=== PATIENT | male | born 1945 | race Caucasian/White ===

== ENCOUNTER → 2016-12-27 | Outpatient (CLI) | payer MEDICARE ==
--- NOTE | 2016-12-27 10:14 | US ---
EXAMINATION TYPE: US duplex aorta DATE OF EXAM: 12/27/2016 9:35 AM COMPARISON: US in PACS CLINICAL HISTORY: I71.9 Aortic aneurysm of unspec site w/o rupture. History of AAA, pt has no complai nts at this time EXAM MEASUREMENTS: Abdominal Aorta: Proximal: 2.9 x 2.9 cm Mid: 2.2 x 2.3 cm Distal: 3.6 x 3.9 cm Bifurcation: SPENSER: 1.3 x 1.3 cm MOOK: 1.5 x 1.2 cm Wall calcifications, Ectatic aorta with distal AAA= 3.6 x 3.9 cm which has increased in size since previous IMPRESSION: 3.9 CM, INFRARENAL ABDOMINAL AORTIC ANEURYSM.
[2016-12-27 10:37] LABS: Basophils # (A) 0.1 k/uL (0-0.2); Basophils % (A) 1 %; CH 30.2; CHCM 34.2; Eosinophils # (A) 0.3 k/uL (0-0.7); Eosinophils % (A) 3 %; HCT 49.3 % (39.0-53.0); HDW 2.75; HGB 16.7 gm/dL (13.0-17.5); Luc # (Auto) 0.19; Luc % (Auto) 2; Lymphocytes # (A) 1.5 k/uL (1.0-4.8); Lymphocytes % (A) 20 %; MCHC 33.8 g/dL (31.0-37.0); MCV 88.7 fL (80.0-100.0); Mean Platelet Volume 8.9; Monocytes # (A) 0.6 k/uL (0-1.0); Monocytes % (A) 8 %; Neutrophils # (A) 5.2 k/uL (1.3-7.7); Neutrophils % (A) 66 %; RBC 5.56 m/uL (4.30-5.90); RDW 13.8 % (11.5-15.5); WBC 7.9 k/uL (3.8-10.6); WBC (Perox) 7.99
[2016-12-27 10:56] LABS: ALT 43 U/L (21-72); AST 35 U/L (17-59); Alkaline Phosphatase 52 U/L (38-126); Anion Gap 13 mmol/L; Blood Urea Nitrogen 23 mg/dL (9-20); Calcium 9.2 mg/dL (8.4-10.2); Carbon Dioxide 20 mmol/L (22-30); Chloride 110 mmol/L (98-107); Cholesterol 153 mg/dL (<200); Glucose 97 mg/dL (74-99); HDL Cholesterol 33 mg/dL (40-60); Non-African American GFR(MDRD) >60 (>60 ml/min/1.73 sqM); Potassium 4.5 mmol/L (3.5-5.1); Sodium 143 mmol/L (137-145); Total Bilirubin 1.7 mg/dL (0.2-1.3); Total Protein 7.2 g/dL (6.3-8.2); Triglycerides 125 mg/dL (<150)
[2016-12-27 11:41] LABS: Hepatitis C Virus IgG Index 0.03
[2016-12-27 11:50] LABS: Hepatitis C Virus IgG Ab Negative (Negative)
== END | disposition home or self-care (01) ==
LOC: RADUSWWP 09:22
PROVIDERS: ATTEND Internal Medicine
DX: I71.4 Abdominal aortic aneurysm, without rupture (principal); E55.9 Vitamin D deficiency, unspecified; I10 Essential (primary) hypertension; Z13.9 Encounter for screening, unspecified
CPT/HCPCS: 80053; 80061; 82306; 85025; 86803; 93979

== ENCOUNTER → 2017-09-28 | Outpatient (CLI) | payer MEDICARE ==
--- NOTE | 2017-09-28 09:45 | US ---
EXAMINATION TYPE: US duplex aorta DATE OF EXAM: 09/28/2017 COMPARISON: US CLINICAL HISTORY: I71.4 Abdominal aortic aneurysm w/o ruputure. EXAM MEASUREMENTS: Abdominal Aorta: Proximal: 2.4 x 2.4 cm Mid: 2.4 x 2.5 cm Distal: 3.8 x 4.0 cm Bifurcation: right 1.7 x 1.6 cm 1.6 x 1.7 cm distal AAA, previously measuring 3.6 x 3.9 cm on the exam of 12/27/2016. IMPRESSION: Interval enlargement of the distal abdominal aortic aneurysm measuring up to 3.8 x 4.0 cm , previously measuring 3.6 x 3.9 cm on the exam of 12/27/2016.
== END | disposition home or self-care (01) ==
LOC: RADUSWWP 08:53
PROVIDERS: ATTEND Internal Medicine
DX: I71.4 Abdominal aortic aneurysm, without rupture (principal)
CPT/HCPCS: 93979

== ENCOUNTER → 2018-05-03 | Outpatient (CLI) | payer MEDICARE ==
[2018-05-03 09:46] LABS: Basophils % (A) 1 %; Eosinophils # (A) 0.3 k/uL (0-0.7); Eosinophils % (A) 4 %; HCT 46.5 % (39.0-53.0); HGB 15.7 gm/dL (13.0-17.5); Lymphocytes # (A) 1.6 k/uL (1.0-4.8); Lymphocytes % (A) 21 %; MCH 30.1 pg (25.0-35.0); MCHC 33.7 g/dL (31.0-37.0); MCV 89.2 fL (80.0-100.0); Mean Platelet Volume 7.9; Monocytes # (A) 0.7 k/uL (0-1.0); Monocytes % (A) 8 %; Neutrophils % (A) 64 %; Platelet Count 215 k/uL (150-450); RBC 5.21 m/uL (4.30-5.90); RDW 14.1 % (11.5-15.5); WBC 7.8 k/uL (3.8-10.6)
[2018-05-03 09:49] LABS: Appearance,Urine Clear (Clear); Bilirubin,Urine Negative (Negative); Blood,Urine Negative (Negative); Color,Urine Yellow; Glucose,Urine (UA) Negative (Negative); Ketones,Urine Negative (Negative); Leukocyte Esterase,Urine Negative (Negative); Nitrite,Urine Negative (Negative); PH, Urine 5.5 (5.0-8.0); Protein,Urine Negative (Negative); Specific Gravity,Urine 1.016 (1.001-1.035); Urobilinogen,Urine <2.0 mg/dL (<2.0)
[2018-05-03 10:12] LABS: Albumin 4.1 g/dL (3.5-5.0); Potassium 4.6 mmol/L (3.5-5.1); Total Bilirubin 0.7 mg/dL (0.2-1.3); Total Protein 7.2 g/dL (6.3-8.2)
[2018-05-03 16:16] LABS: Vitamin D 25 Hydroxy 51.2 ng/mL (30.0-100.0)
== END | disposition home or self-care (01) ==
LOC: LABWHC1 09:20
PROVIDERS: ATTEND Internal Medicine
DX: I10 Essential (primary) hypertension (principal); E53.8 Deficiency of other specified B group vitamins; E55.9 Vitamin D deficiency, unspecified
CPT/HCPCS: 36415; 80053; 80061; 81003; 82306; 82607; 85025

== ENCOUNTER → 2018-06-19 | Outpatient (CLI) | payer MEDICARE ==
--- NOTE | 2018-06-19 07:34 | US ---
EXAMINATION TYPE: US duplex aorta DATE OF EXAM: 06/19/2018 COMPARISON: 09/28/2017 CLINICAL HISTORY: 72-year-old male I71.4 Abdominal Aortic Aneurysm w/o rupture. AAA follow up TECHNIQUE: Multiple sonographic images of the abdominal aorta are obtained. FINDINGS: EXAM MEASUREMENTS: Abdominal Aorta: Proximal: 2.3 x 2.4 cm Mid: 3.4 x 2.9 cm (previously 2.4 x 2.5 cm) Distal: 4.0 x 4.1 cm (previously 3.8 x 4.0 cm) Bifurcation: SPENSER: 1.3 x 1.5 cm MOOK: 1.7 x 1.6 cm Fountain Manager notes:Known distal AAA, slightly larger when compared to previous, mid portion also >3c m IMPRESSION: 1. Infrarenal AAA measuring 4.1 x 4.0 cm versus 3.8 x 4.0 cm, previously. 2. The mid abdominal aorta is also measuring aneurysmal now at 3.4 x 2.9 cm (previously measured at 2 .4 x 2.5 cm). This in part is felt to relate to differences in measurement technique. Follow-up can b e performed. 3. Ectatic bilateral common iliac arteries measuring up to 1.7 cm on the left.
== END | disposition home or self-care (01) ==
LOC: RADUSWWP 06:48
PROVIDERS: ATTEND Internal Medicine
DX: I71.4 Abdominal aortic aneurysm, without rupture (principal); I77.89 Other specified disorders of arteries and arterioles
CPT/HCPCS: 93979

== ENCOUNTER → 2018-07-11 | Outpatient (CLI) | payer MEDICARE ==
--- NOTE | 2018-07-11 13:42 | US ---
EXAMINATION TYPE: US venous doppler duplex LE RT DATE OF EXAM: 07/11/2018 1:11 PM COMPARISON: NONE CLINICAL HISTORY: M79.669 Pain in Calf. Swelling x 2 weeks. Pt felt "tendon tear". SIDE PERFORMED: Right TECHNIQUE: The lower extremity deep venous system is examined utilizing real time linear array sonog alycia with graded compression, doppler sonography and color-flow sonography. VESSELS IMAGED: External Iliac Vein (EIV) Common Femoral Vein Deep Femoral Vein Greater Saphenous Vein * Femoral Vein Popliteal Vein Small Saphenous Vein * Proximal Calf Veins (* superficial vessels) Right Leg: Negative for DVT Fluid collections noted on right lower extremity containing septations and debris: Popliteal Space = 6.3 x 3.4 x 1.9 cm Lower right calf = 11.4 x 5.5 x 2.5 cm Grayscale, color doppler, spectral doppler imaging performed of the deep veins of the right lower ext remity. There is normal flow, compressibility, vascular waveforms. IMPRESSION: No ultrasound evidence for acute DVT in the right lower extremity. There is moderate siz e slightly debris-filled popliteal cyst noted towards end of study. There is larger nonsimple fluid c ollection in the right calf suspicious for hematoma given patient history. Correlate for "Tennis leg" . Follow-up MRI may be beneficial.
== END ==
LOC: RADUSWWP 12:40
PROVIDERS: ATTEND Internal Medicine
DX: M71.20 Synovial cyst of popliteal space [Baker], unspecified knee (principal)

== ENCOUNTER 2018-11-22 09:27 | Emergency (ER) | payer MEDICARE ==
[2018-11-22 09:44] VITALS: RESP 18
--- NOTE | 2018-11-22 09:55 | ED ---
Upper Extremity HPI - General Chief Complaint: Extremity Injury, Upper Stated Complaint: RT INDEX FINGER INJURY Time Seen by Provider: 11/22/18 09:42 Source: patient, RN notes reviewed, old records reviewed Mode of arrival: ambulatory Limitations: no limitations - History of Present Illness Initial Comments: Patient is a 73-year-old male presents emergency room today with complaints of right index finger injury. Patient reports he slipped and fell on the ice. He cut himself with his right hand. He reports that he injured his right index finger. He reports he is unable to bend it. Patient states that he has a small laceration over the palmar aspect of the fingers well. Patient denies any fevers chills chest pain shortness breath, nausea vomiting or headaches. - Related Data Home Medications Medication Instructions Recorded Confirmed Atorvastatin [Lipitor] 10 mg PO HS 11/22/18 11/22/18 Carvedilol [Coreg] 12.5 mg PO BID 11/22/18 11/22/18 Cholecalciferol [Vitamin D3] 2,000 mg PO DAILY 11/22/18 11/22/18 Losartan Potassium [Cozaar] 100 mg PO DAILY 11/22/18 11/22/18 Sertraline [Zoloft] 50 mg PO DAILY 11/22/18 11/22/18 Tamsulosin HCl [Flomax] 0.4 mg PO HS 11/22/18 11/22/18 amLODIPine [Norvasc] 5 mg PO DAILY 11/22/18 11/22/18 Allergies Allergy/AdvReac Type Severity Reaction Status Date / Time hydromorphone [From Dilaudid] Allergy Rash/Hives Verified 11/22/18 09:52 Sulfa (Sulfonamide Allergy Unknown Verified 11/22/18 09:52 Antibiotics) Childhood Tetanus Vaccines and Toxoid Allergy Unknown Verified 11/22/18 09:52 Childhood morphine AdvReac Nausea & Verified 11/22/18 09:52 Vomiting Review of Systems ROS Statement: Those systems with pertinent positive or pertinent negative responses have been documented in the HPI. ROS Other: All systems not noted in ROS Statement are negative. Past Medical History Past Medical History: CVA/TIA, Hypertension History of Any Multi-Drug Resistant Organisms: None Reported Past Psychological History: No Psychological Hx Reported Smoking Status: Never smoker Past Alcohol Use History: None Reported Past Drug Use History: None Reported General Exam - General Exam Comments Initial Comments: 33-year-old male. Alert and oriented. No distress. Limitations: no limitations General appearance: alert, in no apparent distress Head exam: Present: atraumatic, normocephalic, normal inspection Eye exam: Present: normal appearance, PERRL, EOMI. Absent: scleral icterus, conjunctival injection, periorbital swelling ENT exam: Present: normal exam, mucous membranes moist Neck exam: Present: normal inspection. Absent: tenderness, meningismus, lymphadenopathy Respiratory exam: Present: normal lung sounds bilaterally. Absent: respiratory distress, wheezes, rales, rhonchi, stridor Cardiovascular Exam: Present: regular rate, normal rhythm, normal heart sounds. Absent: systolic murmur, diastolic murmur, rubs, gallop, clicks GI/Abdominal exam: Present: soft, normal bowel sounds. Absent: distended, tenderness, guarding, rebound, rigid Extremities exam: Present: normal inspection, full ROM, normal capillary refill , other (dislocated PIP of R index finger). Absent: tenderness, pedal edema, joint swelling, calf tenderness Back exam: Present: normal inspection Neurological exam: Present: alert, oriented X3, CN II-XII intact Course Vital Signs 11/22/18 11/22/18 09:41 11:10 Temperature 98.3 F 97.0 F L Pulse Rate 70 56 L Respiratory 18 18 Rate Blood Pressure 175/86 129/83 O2 Sat by Pulse 97 97 Oximetry Procedures - Orthopedic Joint Reduction Joint #1 Side: right Joint Reduction Location: finger (index) Analgesia: none Technique Used: direct manipulation Post-Reduction Neuro Exam: intact Post-Reduction Vascular Exam: intact, no change Post Reduction X-Ray Obtained: No Splint Applied: Yes (finger splint. ) Patient Tolerated Procedure: well, no complications Additional Comments: Patient has full ROM of finger after reduction. Normal sensationa nd cap refill. Medical Decision Making - Medical Decision Making 74 year old male with fall and dislocation of R index PIP digit. Patient had small abrasion over DIP closed with dermabond. Patient tolerated reduction well , and after reevaluation he is NV inact. Patient has full ROM of finger. Discussed using finger splint nad PCP and ortho follow up. - Radiology Data Radiology results: report reviewed Dorsal dislocation middle distal phalanx of the second digit relative to proximal phalanx. Soft tissue edema noted. Tiny chip fracture is not excluded. 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 Lateral views are difficult to assess the capitate lunate alignment which may be slightly subluxed. This could be acute but suspect chronic basis of secondary to severe arthropathy. Correlate clinically. Disposition Clinical Impression: Finger abrasion, Finger dislocation Disposition: HOME SELF-CARE Condition: Good Instructions (If sedation given, give patient instructions): Finger Dislocation (ED) Additional Instructions: follow-up with your primary care physician. Patient should return to the emergency department if any alarming signs or symptoms occur. Rapid finger splint or ilda tape the 2 fingers together. Motrin Tylenol and icing for pain. Is patient prescribed a controlled substance at d/c from ED?: No Referrals: Real Calix MD [Primary Care Provider] - 1-2 days Time of Disposition: 10:57
--- NOTE | 2018-11-22 10:11 | XR ---
EXAMINATION TYPE: XR hand complete RT DATE OF EXAM: 11/22/2018 COMPARISON: NONE HISTORY: Pain TECHNIQUE: Three views are submitted. FINDINGS: There is arthropathy of the radiocarpal joint with deformity of the scaphoid which could been the bas is of chronic osteonecrosis. Arthropathy of the MCP joint of the first 2 digits are noted. There is a dislocation of the middle and distal phalanx of the second digit relative to the proximal phalanx. C annot exclude a small chip fracture off the volar plate. Lateral view is difficult to assess the capi julien lunate alignment. Corticated bony density along the dorsal surface of the radius appears chronic . IMPRESSION: 1. Dorsal dislocation middle and distal phalanx second digit relative the proximal phalanx. Soft tiss ue edema noted. Tiny Chip fracture not excluded. 2. 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 3. Lateral views difficult to assess the capitate lunate alignment which may be slightly subluxed. Th is could be acute but suspect is chronic basis secondary to severe arthropathy. Correlate clinically.
[2018-11-22] MEDS ORDERED: TOPICAL SKIN ADHESIVE 1 EACH AMP TOPICAL ONE (10:24)
[2018-11-22 11:18] VITALS: BP 129/83; PULSE 56; TEMP 97
--- NOTE | 2018-11-23 03:37 | CDI ---
Documentation Clarification OP Dear Cherie KELLOGG PA-C, PAC Please provide index finger abrasion repair length. Thank you, Sudhir Shoemaker Community Nutrition Educator If you have any questions, please contact Air Export Coordinator at [phone] [facility]
== END 2018-11-22 11:10 | disposition home or self-care (01) ==
LOC: EC 09:27
DX: S63.280A Dislocation of proximal interphalangeal joint of right index finger, initial encounter (principal); S60.410A Abrasion of right index finger, initial encounter; I10 Essential (primary) hypertension; Z79.899 Other long term (current) drug therapy; Z88.5 Allergy status to narcotic agent; Z88.2 Allergy status to sulfonamides; Z88.7 Allergy status to serum and vaccine; Z86.73 Personal history of transient ischemic attack (TIA), and cerebral infarction without residual deficits; W00.0XXA Fall on same level due to ice and snow, initial encounter; Y92.89 Other specified places as the place of occurrence of the external cause
CPT/HCPCS: 12001; 26770; 99284

== ENCOUNTER → 2019-01-02 | Outpatient (CLI) | payer MEDICARE ==
[2019-01-02 17:24] LABS: Albumin 4.2 g/dL (3.80-4.90); Anion Gap 8.6 mmol/L (4.00-12.00); Calcium 8.9 mg/dL (8.7-10.3); Carbon Dioxide 20.4 mmol/L (21.6-31.8); Phosphorus 3.3 mg/dL (2.4-5.1); Potassium 4.2 mmol/L (3.5-5.5)
== END | disposition home or self-care (01) ==
LOC: LABWHC1 10:06
PROVIDERS: ATTEND Surgery Vascular Surgery
DX: Z01.812 Encounter for preprocedural laboratory examination (principal)
CPT/HCPCS: 36415; 80069

== ENCOUNTER → 2019-02-27 | Outpatient (CLI) | payer MEDICARE ==
--- NOTE | 2019-02-27 13:45 | US ---
EXAMINATION TYPE: US venous doppler duplex LE LT DATE OF EXAM: 02/27/2019 1:33 PM COMPARISON: US 2013 CLINICAL HISTORY: pain in Left lower M79.605. 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 VESSELS IMAGED: External Iliac Vein (EIV) Common Femoral Vein Deep Femoral Vein Greater Saphenous Vein * Femoral Vein Popliteal Vein Small Saphenous Vein * Proximal Calf Veins (* superficial vessels) Grayscale, color doppler, spectral doppler imaging performed of the deep veins of the left lower extr emity. There is normal flow, compressibility, vascular waveforms. Left Leg: Appears negative for DVT IMPRESSION: No sonographic evidence of deep venous thrombosis within the left lower extremity.
== END | disposition home or self-care (01) ==
LOC: RADUSWWP 13:04
PROVIDERS: ATTEND Internal Medicine
DX: M79.605 Pain in left leg (principal)

== ENCOUNTER → 2019-03-13 | Outpatient (CLI) | payer MEDICARE | END | disposition home or self-care (01) | LOC: RADMRIMAIN 10:34 | PROVIDERS: ATTEND Internal Medicine | DX: Z53.9 Procedure and treatment not carried out, unspecified reason (principal) ==

== ENCOUNTER → 2019-07-02 | Outpatient (CLI) | payer MEDICARE ==
[2019-07-02 11:56] LABS: Basophils # (A) 0.1 k/uL (0-0.2); Basophils % (A) 1 %; Eosinophils # (A) 0.4 k/uL (0-0.7); Eosinophils % (A) 5 %; HCT 48.7 % (39.0-53.0); HGB 16.8 gm/dL (13.0-17.5); Lymphocytes # (A) 1.9 k/uL (1.0-4.8); Lymphocytes % (A) 21 %; MCH 29.6 pg (25.0-35.0); MCHC 34.4 g/dL (31.0-37.0); MCV 86.1 fL (80.0-100.0); Mean Platelet Volume 7.1; Monocytes # (A) 0.6 k/uL (0-1.0); Monocytes % (A) 6 %; Neutrophils # (A) 6.1 k/uL (1.3-7.7); Neutrophils % (A) 66 %; Platelet Count 235 k/uL (150-450); RBC 5.66 m/uL (4.30-5.90); RDW 13.7 % (11.5-15.5); WBC 9.3 k/uL (3.8-10.6)
[2019-07-02 12:19] LABS: Appearance,Urine Clear (Clear); Bilirubin,Urine Negative (Negative); Blood,Urine Negative (Negative); Color,Urine Yellow; Glucose,Urine (UA) Negative (Negative); Ketones,Urine Negative (Negative); Leukocyte Esterase,Urine Negative (Negative); Nitrite,Urine Negative (Negative); Protein,Urine Negative (Negative); Specific Gravity,Urine 1.017 (1.001-1.035); Urobilinogen,Urine <2.0 mg/dL (<2.0)
[2019-07-02 15:57] LABS: African American GFR (CKD) 77.3 (60.0-200.0); Albumin 4.3 g/dL (3.80-4.90); Albumin/Globulin Ratio 1.79 (1.60-3.17); BUN/Creat Ratio 19.09 Ratio (12.00-20.00); Calcium 9.1 mg/dL (8.7-10.3); Chol/HDL Ratio 4.93; Globulin 2.4 g/dL (1.6-3.3); LDL Cholesterol,Calculated 86.6 mg/dL (0.0-131.0); Phosphorus 3.8 mg/dL (2.4-5.1); Potassium 4.7 mmol/L (3.5-5.5); Total Bilirubin 1.4 mg/dL (0.3-1.2); Total Protein 6.7 g/dL (6.2-8.2); VLDL Calculation 23.4 mg/dL (5.00-40.00)
== END | disposition home or self-care (01) ==
LOC: LABWHC1 11:03
PROVIDERS: ATTEND Surgery Vascular Surgery
DX: I71.2 Thoracic aortic aneurysm, without rupture (principal); I10 Essential (primary) hypertension; I71.4 Abdominal aortic aneurysm, without rupture; E55.9 Vitamin D deficiency, unspecified
CPT/HCPCS: 36415; 80053; 80061; 80069; 81003; 82306; 85025

== ENCOUNTER 2019-07-14 12:01 | Emergency (ER) | payer MEDICARE ==
[2019-07-14 12:07] VITALS: RESP 18; TEMP 97.6
[2019-07-14] MEDS ORDERED: SODIUM CHLORIDE 0.9% 1,000 ML IV STA (12:35)
[2019-07-14 12:39] LABS: Glucose,Whole Blood 103 mg/dL (75-99)
--- NOTE | 2019-07-14 12:40 | ED ---
General Adult HPI - General Chief complaint: Syncope Stated complaint: Weakness Time Seen by Provider: 07/14/19 12:09 Source: patient, family, RN notes reviewed Mode of arrival: wheelchair Limitations: no limitations - History of Present Illness Initial comments: Patient is a pleasant 73-year-old male presenting to the emergency Department with complaints of near syncope episode. Episode occurred around an hour ago. Patient was sitting down and became very lightheaded. Patient had blurry vision. Patient felt decreased hearing and then ringing in his ears. Patient did not feel well. Symptoms lasted less than 5 minutes and now have resolved ex cept for feeling fatigued. No confusion. Patient did not fully pass out. No speech problems. No isolated area of weakness. Patient does have known aneurysm in the abdomen as well as thoracic and left inguinal region and sees his doctor on Tuesday for this. - Related Data Home Medications Medication Instructions Recorded Confirmed Atorvastatin [Lipitor] 10 mg PO HS 11/22/18 07/14/19 Carvedilol [Coreg] 12.5 mg PO BID 11/22/18 07/14/19 Losartan Potassium [Cozaar] 100 mg PO DAILY 11/22/18 07/14/19 Sertraline [Zoloft] 50 mg PO HS 11/22/18 07/14/19 Tamsulosin HCl [Flomax] 0.4 mg PO DAILY 11/22/18 07/14/19 amLODIPine [Norvasc] 5 mg PO DAILY 11/22/18 07/14/19 Allergies Allergy/AdvReac Type Severity Reaction Status Date / Time hydromorphone [From Dilaudid] Allergy Rash/Hives Verified 07/14/19 13:01 Sulfa (Sulfonamide Allergy Unknown Verified 07/14/19 13:01 Antibiotics) Childhood Tetanus Vaccines and Toxoid Allergy Unknown Verified 07/14/19 13:01 Childhood morphine AdvReac Nausea & Verified 07/14/19 13:01 Vomiting Review of Systems ROS Statement: Those systems with pertinent positive or pertinent negative responses have been documented in the HPI. ROS Other: All systems not noted in ROS Statement are negative. Constitutional: Denies: fever Eyes: Reports: as per HPI. Denies: eye pain ENT: Reports: as per HPI Respiratory: Denies: dyspnea Cardiovascular: Denies: chest pain Endocrine: Reports: fatigue Gastrointestinal: Denies: abdominal pain Genitourinary: Denies: dysuria Musculoskeletal: Denies: back pain Skin: Denies: rash Neurological: Denies: headache, weakness, confusion Past Medical History Past Medical History: CVA/TIA, Hypertension History of Any Multi-Drug Resistant Organisms: None Reported Past Surgical History: Cholecystectomy, Orthopedic Surgery Additional Past Surgical History / Comment(s): B Knee, L eye, B cataract, 5 ludivina holes, vasectomy Past Psychological History: No Psychological Hx Reported Smoking Status: Never smoker Past Alcohol Use History: Occasional Past Drug Use History: None Reported General Exam Limitations: no limitations General appearance: alert, in no apparent distress Head exam: Present: normocephalic Eye exam: Present: normal appearance, PERRL, EOMI. Absent: nystagmus ENT exam: Present: normal oropharynx Neck exam: Present: normal inspection Respiratory exam: Present: normal lung sounds bilaterally Cardiovascular Exam: Present: bradycardia Expanded Peripheral pulses: 2+: Radial (R), Radial (L), Posterior Tibialis (R), Posterior Tibialis (L), Dorsalis Pedis (R), Dorsalis Pedis (L) GI/Abdominal exam: Present: soft. Absent: distended, tenderness, pulsatile mass Extremities exam: Present: normal inspection Neurological exam: Present: alert, oriented X3, CN II-XII intact. Absent: motor sensory deficit Expanded Neurological exam: Present: protecting the airway Patient oriented to: Present: person, place, time Speech: Present: fluid speech Cranial nerves: EOM's Intact: Normal, Facial Sensation: Normal Sensory exam: Upper Extremity Light Touch: Normal, Lower Extremity Light Touch: Normal Motor strength exam: RUE: 5, LUE: 5, RLE: 5, LLE: 5 Eye Response: (4) open spontaneously Motor Response: (6) obeys commands Verbal Response: (5) oriented Psychiatric exam: Present: normal affect, normal mood Skin exam: Present: normal color Course Vital Signs 07/14/19 12:03 Temperature 97.6 F Pulse Rate 50 L Respiratory 18 Rate Blood Pressure 182/95 O2 Sat by Pulse 96 Oximetry EKG Findings - EKG Comments: EKG Findings:: Sinus bradycardia at 51. First-degree AV block with a ND of 210. QRS 100. QT 500. QTc 460. Normal axis. Normal QRS. No acute ST change. Medical Decision Making - Medical Decision Making Patient reevaluated and resting comfortably in bed. Heart rate 60. Patient family updated on results. Patient recommended admission for further evaluation and monitoring however refuses. Patient states he feels fine at this point and does not see a reason to be admitted. Patient states he does have follow-up appointment with his basilar doctor on Tuesday and is agreeable to close follow- up with his primary care physician in the beginning of the week as well. Patient is advised to hold his metoprolol if heart rate is 63 or lower in the morning. - Lab Data Result diagrams: 07/14/19 12:35 07/14/19 12:35 Lab Results 07/14/19 07/14/19 07/14/19 Range/Units 12:35 12:35 12:35 WBC 8.2 (3.8-10.6) k/uL RBC 5.28 (4.30-5.90) m/uL Hgb 16.1 (13.0-17.5) gm/dL Hct 46.7 (39.0-53.0) % MCV 88.4 (80.0-100.0) fL MCH 30.4 (25.0-35.0) pg MCHC 34.4 (31.0-37.0) g/dL RDW 13.9 (11.5-15.5) % Plt Count 195 (150-450) k/uL Neutrophils % 69 % Lymphocytes % 18 % Monocytes % 6 % Eosinophils % 4 % Basophils % 1 % Neutrophils # 5.7 (1.3-7.7) k/uL Lymphocytes # 1.5 (1.0-4.8) k/uL Monocytes # 0.5 (0-1.0) k/uL Eosinophils # 0.3 (0-0.7) k/uL Basophils # 0.1 (0-0.2) k/uL PT 10.7 (9.0-12.0) sec INR 1.0 (<1.2) APTT 29.5 (22.0-30.0) sec Sodium 141 (137-145) mmol/L Potassium 4.8 (3.5-5.1) mmol/L Chloride 109 H (98-107) mmol/L Carbon Dioxide 22 (22-30) mmol/L Anion Gap 10 mmol/L BUN 23 H (9-20) mg/dL Creatinine 1.06 (0.66-1.25) mg/dL Est GFR (CKD-EPI)AfAm 81 (>60 ml/min/1.73 sqM) Est GFR (CKD-EPI)NonAf 70 (>60 ml/min/1.73 sqM) Glucose 107 H (74-99) mg/dL POC Glucose (mg/dL) (75-99) mg/dL POC Glu Topography Technician ID Calcium 9.4 (8.4-10.2) mg/dL Total Bilirubin 1.0 (0.2-1.3) mg/dL AST 30 (17-59) U/L ALT 32 (21-72) U/L Alkaline Phosphatase 65 (38-126) U/L Troponin I (0.000-0.034) ng/mL Total Protein 7.4 (6.3-8.2) g/dL Albumin 4.1 (3.5-5.0) g/dL 07/14/19 07/14/19 Range/Units 12:35 12:38 WBC (3.8-10.6) k/uL RBC (4.30-5.90) m/uL Hgb (13.0-17.5) gm/dL Hct (39.0-53.0) % MCV (80.0-100.0) fL MCH (25.0-35.0) pg MCHC (31.0-37.0) g/dL RDW (11.5-15.5) % Plt Count (150-450) k/uL Neutrophils % % Lymphocytes % % Monocytes % % Eosinophils % % Basophils % % Neutrophils # (1.3-7.7) k/uL Lymphocytes # (1.0-4.8) k/uL Monocytes # (0-1.0) k/uL Eosinophils # (0-0.7) k/uL Basophils # (0-0.2) k/uL PT (9.0-12.0) sec INR (<1.2) APTT (22.0-30.0) sec Sodium (137-145) mmol/L Potassium (3.5-5.1) mmol/L Chloride (98-107) mmol/L Carbon Dioxide (22-30) mmol/L Anion Gap mmol/L BUN (9-20) mg/dL Creatinine (0.66-1.25) mg/dL Est GFR (CKD-EPI)AfAm (>60 ml/min/1.73 sqM) Est GFR (CKD-EPI)NonAf (>60 ml/min/1.73 sqM) Glucose (74-99) mg/dL POC Glucose (mg/dL) 103 H (75-99) mg/dL POC Glu Topography Technician Willow Cardoso Calcium (8.4-10.2) mg/dL Total Bilirubin (0.2-1.3) mg/dL AST (17-59) U/L ALT (21-72) U/L Alkaline Phosphatase (38-126) U/L Troponin I <0.012 (0.000-0.034) ng/mL Total Protein (6.3-8.2) g/dL Albumin (3.5-5.0) g/dL - Radiology Data Radiology results: report reviewed (Computed tomography scan of the brain shows no acute intercranial abnormality. Degenerative and postsurgical changes. Dystrophic calcification in the rosales.), image reviewed (CT angios of the aorta shows 4.1 cm aneurysm aortic arch and borderline distal arch. 4.7 cm infrarenal abdominal aortic aneurysm. There also appears to be left iliac aneurysm.) Disposition Clinical Impression: Near syncope, Lightheadedness Disposition: HOME SELF-CARE Condition: Stable Instructions (If sedation given, give patient instructions): Thoracic Aortic Aneurysm (ED), Near Syncope (ED), Lightheadedness (ED) Additional Instructions: Please follow-up with your vascular doctor on Tuesday as scheduled. Please also follow-up to primary care physician Tuesday or Tuesday. Checked heart rate daily. Do not take metoprolol if your heart rate is less than 64. Return for weakness or confusion, feeling like to get a pass out, visual changes, worsening symptoms or any other concerns. Is patient prescribed a controlled substance at d/c from ED?: No Referrals: Real Calix MD [Primary Care Provider] - 1-2 days Time of Disposition: 14:32
[2019-07-14 12:57] LABS: Basophils # (A) 0.1 k/uL (0-0.2); Basophils % (A) 1 %; Eosinophils # (A) 0.3 k/uL (0-0.7); Eosinophils % (A) 4 %; HCT 46.7 % (39.0-53.0); HGB 16.1 gm/dL (13.0-17.5); Lymphocytes # (A) 1.5 k/uL (1.0-4.8); Lymphocytes % (A) 18 %; MCH 30.4 pg (25.0-35.0); MCHC 34.4 g/dL (31.0-37.0); MCV 88.4 fL (80.0-100.0); Mean Platelet Volume 7.2; Monocytes # (A) 0.5 k/uL (0-1.0); Monocytes % (A) 6 %; Neutrophils # (A) 5.7 k/uL (1.3-7.7); Neutrophils % (A) 69 %; Platelet Count 195 k/uL (150-450); RBC 5.28 m/uL (4.30-5.90); RDW 13.9 % (11.5-15.5); WBC 8.2 k/uL (3.8-10.6)
[2019-07-14 12:58] LABS: Albumin 4.1 g/dL (3.5-5.0); Calcium 9.4 mg/dL (8.4-10.2); Potassium 4.8 mmol/L (3.5-5.1); Total Protein 7.4 g/dL (6.3-8.2)
[2019-07-14 13:02] LABS: Partial Thromboplastin Time 29.5 sec (22.0-30.0); Prothrombin Time 10.7 sec (9.0-12.0)
--- NOTE | 2019-07-14 13:50 | CT ---
EXAMINATION TYPE: CT brain wo con DATE OF EXAM: 07/14/2019 COMPARISON: NONE HISTORY: Weakness and syncope CT DLP: 1138 mGycm Automated exposure control for dose reduction was used. FINDINGS: There are generalized changes of sulcal prominence and ventriculomegaly, compatible with atrophic naren nge. There is diffuse periventricular white matter lucency, compatible with chronic white matter isch emic change. There is physiologic calcification of the basal ganglia. There is extensive vascular dean cification. There is dystrophic calcification present within the jackie. There is no mass effect or mid line shift. There is been a previous right frontal craniotomy and left frontal craniotomy. Visualized portions of the paranasal sinuses are intact. IMPRESSION: 1. NO ACUTE INTRACRANIAL ABNORMALITY. 2. DEGENERATIVE CHANGE. 3. POSTSURGICAL CHANGE. 4. DYSTROPHIC OUT "WITHIN THE JACKIE OF QUESTIONABLE ETIOLOGY.
--- NOTE | 2019-07-14 14:03 | CT ---
EXAMINATION TYPE: CT angio thor/abd pel aorta DATE OF EXAM: 07/14/2019 COMPARISON: None. HISTORY: Dizziness and weakness with known aneurysms CT DLP: 3980.4 mGycm. Automated Exposure Control for Dose Reduction was Utilized. CONTRAST: CT scan of the thorax, abdomen and pelvis is performed with IV Contrast, patient injected with 100 mL of Isovue 370. FINDINGS: There is dependent atelectasis in the dependent portions of the lungs. The lungs are otherw ise clear. There is no significant axillary, mediastinal or hilar adenopathy. No pleural or pericardial fluid. T he heart is enlarged. The aorta is aneurysmal measuring 4.7 cm. The proximal arch is aneurysmal measuring 4.1 cm. The dista l arch is mildly aneurysmal measuring 3.1 cm. At the level of the aortic hiatus, the aorta is mildly aneurysmal measuring 3.1 cm. There is an infrarenal aortic aneurysm containing eccentric thrombus wit h maximal transverse diameter 4.7 cm. This extends to but does not involve the aortic bifurcation. The liver is mildly prominent measuring 19 cm. There is a 2.1 cm low attenuating lesion in the medial segment of the left lobe of the liver. This likely represents a cyst. This could BE confirmed with u ltrasound. The gallbladder is been removed. The spleen is normal. Both adrenal glands are normal. There are multiple low attenuating lesions arising from both kidneys which have the appearance of sim ple cyst. The largest on the left measures 4.3 cm and is in the upper pole and the largest on the rig ht measures 4.6 cm and is in the lower pole. The pancreas has a normal appearance., Iliac or inguinal adenopathy. Bladder is unremarkable. There are scattered diverticula within the sigmoid colon and elsewhere throughout the left side of th e colon without radiographic evidence of diverticulitis. The appendix is normal. Small bowel loops are of normal caliber. There is no free fluid and no free air identified. There are degenerative changes in both hips. There is minor wedging of the L5 vertebral body. There i s facet arthropathy and hypertrophic spondylosis within the spine. IMPRESSION: 1. THORACIC AND AORTIC ANEURYSM WITH MAXIMAL TRANSVERSE DIAMETER OF 4.7 CM. 2. CARDIOMEGALY. 3. HEPATOMEGALY. 4. SIMPLE APPEARING HEPATIC AND RENAL CYSTS. THIS COULD BE CONFIRMED WITH ULTRASOUND. 5. UNCOMPLICATED DIVERTICULOSIS OF THE LEFT SIDE OF THE COLON. 6. NORMAL APPENDIX. #7 DEGENERATIVE CHANGE OF BOTH HIPS AND SPINE.
[2019-07-14] MEDS ORDERED: amLODIPine 5 MG TAB PO STA (14:29)
[2019-07-14 14:55] VITALS: BP 167/101; PULSE 59
== END 2019-07-14 14:52 | disposition home or self-care (01) ==
LOC: EC 12:01
DX: R55 Syncope and collapse (principal); R00.1 Bradycardia, unspecified; R53.83 Other fatigue; I71.2 Thoracic aortic aneurysm, without rupture; I71.4 Abdominal aortic aneurysm, without rupture; I72.4 Aneurysm of artery of lower extremity; I10 Essential (primary) hypertension; Z88.2 Allergy status to sulfonamides; Z88.5 Allergy status to narcotic agent; Z88.7 Allergy status to serum and vaccine; Z79.899 Other long term (current) drug therapy; Z86.73 Personal history of transient ischemic attack (TIA), and cerebral infarction without residual deficits; Z90.49 Acquired absence of other specified parts of digestive tract; Z53.20 Procedure and treatment not carried out because of patient's decision for unspecified reasons
CPT/HCPCS: 99284; 96360; 96361; 36415; 93005; 80053; 84484; 85025; 85610; 85730; 70450; 71275; 74174; Q9967

== ENCOUNTER → 2019-09-13 | Outpatient (CLI) | payer MEDICARE ==
[2019-09-14] LABS: African American GFR (CKD) 76.8 (60.0-200.0); Anion Gap 10.5 mmol/L (4.00-12.00); BUN/Creat Ratio 18.18 Ratio (12.00-20.00); Calcium 8.8 mg/dL (8.7-10.3); Carbon Dioxide 23.5 mmol/L (21.6-31.8); Non-African American GFR(CKD) 66.2 (60.0-200.0); Potassium 4.4 mmol/L (3.5-5.5)
== END | disposition home or self-care (01) ==
LOC: LABWHC1 14:57
PROVIDERS: ATTEND Specialist
DX: I10 Essential (primary) hypertension (principal)
CPT/HCPCS: 36415; 80048

== ENCOUNTER 2019-09-22 11:35 | Inpatient (IN) | payer MEDICARE ==
[2019-09-22] MEDS ORDERED: SODIUM CHLORIDE 0.9% 1,000 ML IV STA (12:15)
--- NOTE | 2019-09-22 12:22 | ED ---
General Adult HPI - General Chief complaint: Recheck/Abnormal Lab/Rx Stated complaint: EKG Time Seen by Provider: 09/22/19 11:48 Source: patient, RN notes reviewed Mode of arrival: wheelchair Limitations: physical limitation - History of Present Illness Initial comments: Patient is a pleasant 74-year-old male presenting to the emergency department with concerns for needing an EKG. Patient states they talked to their doctor Gantt who recommended to have an EKG done at the hospital. Further history obtained reveals that patient felt lightheaded after getting of the shower and felt sweaty. Patient states symptoms are near resolved however when he last got up he did feel a little bit lightheaded still at that time. Patient is symptom- free in bed. Patient did have a stroke approximately 2 months ago. Patient was going for testing of his aorta when he developed a stroke at [facility] in July. Patient has continued deficits of right-sided facial weakness and balance problems. No extremity weakness. Blood pressure at home was 99/80 and heart rate was 1:30. Patient denies any chest pain or palpitations. Patient denies any dyspnea. No new weakness. No confusion. - Related Data Home Medications Medication Instructions Recorded Confirmed Sertraline [Zoloft] 50 mg PO DAILY 11/22/18 09/22/19 Tamsulosin HCl [Flomax] 0.4 mg PO DAILY 11/22/18 09/22/19 Aspirin 81 mg PO DAILY 09/22/19 09/22/19 Atorvastatin [Lipitor] 80 mg PO HS 09/22/19 09/22/19 Carvedilol [Coreg] 3.125 mg PO BID 09/22/19 09/22/19 Clopidogrel [Plavix] 75 mg PO DAILY 09/22/19 09/22/19 Famotidine [Pepcid] 20 mg PO DAILY 09/22/19 09/22/19 Hydrochlorothiazide [Hydrodiuril] 25 mg PO DAILY 09/22/19 09/22/19 Losartan [Cozaar] 50 mg PO DAILY 09/22/19 09/22/19 Allergies Allergy/AdvReac Type Severity Reaction Status Date / Time hydromorphone [From Dilaudid] Allergy Rash/Hives Verified 09/22/19 12:44 Sulfa (Sulfonamide Allergy Unknown Verified 09/22/19 12:44 Antibiotics) Childhood Tetanus Vaccines and Toxoid Allergy Unknown Verified 09/22/19 12:44 Childhood morphine AdvReac Nausea & Verified 09/22/19 12:44 Vomiting Review of Systems ROS Statement: Those systems with pertinent positive or pertinent negative responses have been documented in the HPI. ROS Other: All systems not noted in ROS Statement are negative. Constitutional: Denies: fever Eyes: Denies: eye pain ENT: Denies: ear pain Respiratory: Denies: cough Cardiovascular: Denies: chest pain, palpitations Endocrine: Denies: fatigue Gastrointestinal: Denies: abdominal pain, nausea Genitourinary: Denies: dysuria Musculoskeletal: Denies: back pain Skin: Denies: rash Neurological: Reports: as per HPI. Denies: headache, confusion Past Medical History Past Medical History: CVA/TIA, Hypertension History of Any Multi-Drug Resistant Organisms: None Reported Past Surgical History: Cholecystectomy, Orthopedic Surgery Additional Past Surgical History / Comment(s): B Knee, L eye, B cataract, 5 ludivina holes, vasectomy Past Psychological History: No Psychological Hx Reported Smoking Status: Never smoker Past Alcohol Use History: Occasional Past Drug Use History: None Reported General Exam Limitations: physical limitation General appearance: alert, in no apparent distress Head exam: Present: atraumatic, normocephalic Eye exam: Present: normal appearance, PERRL, EOMI ENT exam: Present: normal oropharynx, other (Right-sided facial weakness) Neck exam: Present: normal inspection Respiratory exam: Present: normal lung sounds bilaterally Cardiovascular Exam: Present: normal rhythm, tachycardia GI/Abdominal exam: Present: soft. Absent: tenderness Extremities exam: Present: normal inspection Neurological exam: Present: alert, oriented X3, other (Right-sided facial weakness) Expanded Neurological exam: Present: protecting the airway Patient oriented to: Present: person, place, time Motor strength exam: RUE: 5, LUE: 5, RLE: 5, LLE: 5 Eye Response: (4) open spontaneously Motor Response: (6) obeys commands Verbal Response: (5) oriented Psychiatric exam: Present: normal affect, normal mood Skin exam: Present: normal color Course Vital Signs 09/22/19 09/22/19 11:43 13:47 Temperature 97.3 F L Pulse Rate 130 H 117 H Respiratory 20 17 Rate Blood Pressure 106/71 114/81 O2 Sat by Pulse 93 L Oximetry - Reevaluation(s) Reevaluation #1: 09/22/19 12:20 [facility] cardiology has been paged. 09/22/19 12:[address] Fields from [facility] cardiology. He is suspicious for atrial flutter with a 2-1 block and does feel patient would value from cardiac evaluation, possible admission. He is agreeable with heparin. He states patient can stay in our facility however if they've requested transfer cardiology could evaluate him there as well. 09/22/19 14:00 Patient reevaluated and resting comfortably in bed, symptom-free at this time. Patient and family updated on results and need for admission or transfer. They're discussing this at this time prior to being agreeable for either. 09/22/19 14:21 Patient reevaluated again. Patient and family are comfortable with staying here. Case was discussed in detail with Dr. Barron who will admit covering for Dr. Chino. 09/22/19 14:23 Patient and family state patient did have recent evaluation of his aneurysms, within the past 2 months, which all remaining small and there is no needed intervention at this time. Patient does have small aneurysms of the thorax and abdomen and left iliac. EKG Findings - EKG Comments: EKG Findings:: Neuro complex tachycardia with a rate of 125. QRS 80. QT 350. QTC 505. Normal axis. Normal QRS. No acute ST change. Difficult to visualize P waves. Medical Decision Making - Lab Data Result diagrams: 09/22/19 12:30 09/22/19 12:30 Lab Results 09/22/19 09/22/19 09/22/19 Range/Units 12:30 12:30 12:30 WBC 11.7 H (3.8-10.6) k/uL RBC 5.12 (4.30-5.90) m/uL Hgb 15.0 (13.0-17.5) gm/dL Hct 44.5 (39.0-53.0) % MCV 87.0 (80.0-100.0) fL MCH 29.4 (25.0-35.0) pg MCHC 33.8 (31.0-37.0) g/dL RDW 14.1 (11.5-15.5) % Plt Count 326 (150-450) k/uL Neutrophils % 69 % Lymphocytes % 15 % Monocytes % 7 % Eosinophils % 6 % Basophils % 1 % Neutrophils # 8.1 H (1.3-7.7) k/uL Lymphocytes # 1.8 (1.0-4.8) k/uL Monocytes # 0.8 (0-1.0) k/uL Eosinophils # 0.7 (0-0.7) k/uL Basophils # 0.2 (0-0.2) k/uL PT 11.2 (9.0-12.0) sec INR 1.1 (<1.2) APTT 28.9 (22.0-30.0) sec Sodium 136 L (137-145) mmol/L Potassium 4.7 (3.5-5.1) mmol/L Chloride 105 (98-107) mmol/L Carbon Dioxide 20 L (22-30) mmol/L Anion Gap 11 mmol/L BUN 23 H (9-20) mg/dL Creatinine 1.09 (0.66-1.25) mg/dL Est GFR (CKD-EPI)AfAm 78 (>60 ml/min/1.73 sqM) Est GFR (CKD-EPI)NonAf 67 (>60 ml/min/1.73 sqM) Glucose 113 H (74-99) mg/dL Calcium 9.4 (8.4-10.2) mg/dL Magnesium 1.9 (1.6-2.3) mg/dL Total Bilirubin 1.2 (0.2-1.3) mg/dL AST 47 (17-59) U/L ALT 29 (4-49) U/L Alkaline Phosphatase 72 (38-126) U/L Troponin I (0.000-0.034) ng/mL Total Protein 7.0 (6.3-8.2) g/dL Albumin 3.7 (3.5-5.0) g/dL TSH 1.650 (0.465-4.680) mIU/L Free T4 1.01 (0.78-2.19) ng/dL Free T3 pg/mL 4.0 (2.8-5.3) pg/ml Urine Color Urine Appearance (Clear) Urine pH (5.0-8.0) Ur Specific [place] (1.001-1.035) Urine Protein (Negative) Urine Glucose (UA) (Negative) Urine Ketones (Negative) Urine Blood (Negative) Urine Nitrite (Negative) Urine Bilirubin (Negative) Urine Urobilinogen (<2.0) mg/dL Ur Leukocyte Esterase (Negative) Urine RBC (0-5) /hpf Urine WBC (0-5) /hpf Urine WBC Clumps (None) /hpf Ur Squamous Epith Cells (0-4) /hpf Urine Bacteria (None) /hpf Hyaline Casts (0-2) /lpf Urine Mucus (None) /hpf 09/22/19 09/22/19 Range/Units 12:30 12:42 WBC (3.8-10.6) k/uL RBC (4.30-5.90) m/uL Hgb (13.0-17.5) gm/dL Hct (39.0-53.0) % MCV (80.0-100.0) fL MCH (25.0-35.0) pg MCHC (31.0-37.0) g/dL RDW (11.5-15.5) % Plt Count (150-450) k/uL Neutrophils % % Lymphocytes % % Monocytes % % Eosinophils % % Basophils % % Neutrophils # (1.3-7.7) k/uL Lymphocytes # (1.0-4.8) k/uL Monocytes # (0-1.0) k/uL Eosinophils # (0-0.7) k/uL Basophils # (0-0.2) k/uL PT (9.0-12.0) sec INR (<1.2) APTT (22.0-30.0) sec Sodium (137-145) mmol/L Potassium (3.5-5.1) mmol/L Chloride (98-107) mmol/L Carbon Dioxide (22-30) mmol/L Anion Gap mmol/L BUN (9-20) mg/dL Creatinine (0.66-1.25) mg/dL Est GFR (CKD-EPI)AfAm (>60 ml/min/1.73 sqM) Est GFR (CKD-EPI)NonAf (>60 ml/min/1.73 sqM) Glucose (74-99) mg/dL Calcium (8.4-10.2) mg/dL Magnesium (1.6-2.3) mg/dL Total Bilirubin (0.2-1.3) mg/dL AST (17-59) U/L ALT (4-49) U/L Alkaline Phosphatase (38-126) U/L Troponin I 0.110 H* (0.000-0.034) ng/mL Total Protein (6.3-8.2) g/dL Albumin (3.5-5.0) g/dL TSH (0.465-4.680) mIU/L Free T4 (0.78-2.19) ng/dL Free T3 pg/mL (2.8-5.3) pg/ml Urine Color Yellow Urine Appearance Cloudy (Clear) Urine pH 5.0 (5.0-8.0) Ur Specific [place] 1.016 (1.001-1.035) Urine Protein Trace H (Negative) Urine Glucose (UA) Negative (Negative) Urine Ketones Negative (Negative) Urine Blood Trace H (Negative) Urine Nitrite Negative (Negative) Urine Bilirubin Negative (Negative) Urine Urobilinogen <2.0 (<2.0) mg/dL Ur Leukocyte Esterase Large H (Negative) Urine RBC 6 H (0-5) /hpf Urine WBC 119 H (0-5) /hpf Urine WBC Clumps Rare H (None) /hpf Ur Squamous Epith Cells <1 (0-4) /hpf Urine Bacteria Occasional H (None) /hpf Hyaline Casts 18 H (0-2) /lpf Urine Mucus Occasional H (None) /hpf Critical Care Time Critical Care Time: Yes Total Critical Care Time: 32 Disposition Clinical Impression: Atrial flutter, Elevated troponin Disposition: ADMITTED IP TO THIS HOSP Is patient prescribed a controlled substance at d/c from ED?: No Referrals: Real Calix MD [Primary Care Provider] - 1-2 days Decision Time: 14:23
[2019-09-22 12:41] LABS: Basophils # (A) 0.2 k/uL (0-0.2); Basophils % (A) 1 %; Eosinophils # (A) 0.7 k/uL (0-0.7); Eosinophils % (A) 6 %; HCT 44.5 % (39.0-53.0); Lymphocytes # (A) 1.8 k/uL (1.0-4.8); Lymphocytes % (A) 15 %; MCH 29.4 pg (25.0-35.0); MCHC 33.8 g/dL (31.0-37.0); Mean Platelet Volume 8.5; Monocytes # (A) 0.8 k/uL (0-1.0); Monocytes % (A) 7 %; Neutrophils # (A) 8.1 k/uL (1.3-7.7); Neutrophils % (A) 69 %; Platelet Count 326 k/uL (150-450); RBC 5.12 m/uL (4.30-5.90); RDW 14.1 % (11.5-15.5); WBC 11.7 k/uL (3.8-10.6)
--- NOTE | 2019-09-22 12:48 | XR ---
EXAMINATION TYPE: XR chest 2V DATE OF EXAM: 09/22/2019 HISTORY: dysrhythmia. REFERENCE: Previous study dated 04/20/2012. FINDINGS: The heart is enlarged. There is vascular congestion and subtle interstitial change. No defi nite pleural fluid is seen. There is developing confluent airspace disease at the lung bases. IMPRESSION: 1. CHANGES CONSISTENT WITH MILD HEART FAILURE. 2. CONFLUENT AIRSPACE DISEASE BOTH LUNG BASES MAY REPRESENT ATELECTASIS OR CONFLUENT EDEMA.
[2019-09-22 12:50] LABS: Albumin 3.7 g/dL (3.5-5.0); Calcium 9.4 mg/dL (8.4-10.2); Magnesium 1.9 mg/dL (1.6-2.3); Potassium 4.7 mmol/L (3.5-5.1); Total Bilirubin 1.2 mg/dL (0.2-1.3)
[2019-09-22 12:57] LABS: INR 1.1 (<1.2); Partial Thromboplastin Time 28.9 sec (22.0-30.0); Prothrombin Time 11.2 sec (9.0-12.0)
[2019-09-22 13:07] LABS: T4, Free (Free Thyroxine) 1.01 ng/dL (0.78-2.19)
[2019-09-22 13:10] LABS: Appearance,Urine Cloudy (Clear); Bacteria,Urine Occasional /hpf; Bilirubin,Urine Negative (Negative); Blood,Urine Trace (Negative); Color,Urine Yellow; Glucose,Urine (UA) Negative (Negative); Hyaline Casts,Urine 18 /lpf (0-2); Ketones,Urine Negative (Negative); Leukocyte Esterase,Urine Large (Negative); Mucus,Urine Occasional /hpf; Nitrite,Urine Negative (Negative); Protein,Urine Trace (Negative); RBC,Urine 6 /hpf (0-5); Specific Gravity,Urine 1.016 (1.001-1.035); Squamous Epithelial Cell,Urine <1 /hpf (0-4); Urobilinogen,Urine <2.0 mg/dL (<2.0); WBC,Urine 119 /hpf (0-5)
[2019-09-22] MEDS ORDERED: HEPARIN SODIUM,PORCINE 5,000 UNIT/ML 1 ML VIAL IV PRN (14:24)
[2019-09-22] MEDS ORDERED: NITROGLYCERIN SL TABS 0.4 MG TAB SUBLINGUAL PRN (14:24)
[2019-09-22] MEDS ORDERED: HEPARIN SODIUM,PORCINE 5,000 UNIT/ML 1 ML VIAL IV ONE (14:24)
[2019-09-22] MEDS ORDERED: ASPIRIN 81 MG PO STA (14:26)
[2019-09-22] MEDS: HEPARIN SOD,PORK IN 0.45% NACL 25,000 UNIT in 0.45% NACL 1 250ML.BAG IV SCH (15:22)
[2019-09-22] MEDS ORDERED: DILTIAZEM 125 MG in SODIUM CHLORIDE 0.9% 100 ML IV SCH (16:00)
--- NOTE | 2019-09-22 17:00 | ECHOF ---
Referral Reason:Arrhythmia and elevated troponin MEASUREMENTS -------- HEIGHT: 182.9 cm WEIGHT: 122.5 kg BP: RVIDd: 2.4 cm (< 3.3) IVSd: 1.3 cm (0.6 - 1.1) LVIDd: 4.6 cm (3.9 - 5.3) LVPWd: 1.3 cm (0.6 - 1.1) IVSs: 1.7 cm LVIDs: 4.2 cm LVPWs: 1.3 cm LA Diam: 3.5 cm (2.7 - 3.8) Ao Diam: 3.5 cm (2.0 - 3.7) AV Cusp: 1.6 cm (1.5 - 2.6) LA Diam: 4.1 cm (2.7 - 3.8) MV EXCURSION: 20.130 mm (> 18.000) MV EF SLOPE: 145 mm/s (70 - 150) EPSS: 0.2 cm MV E Titi: 0.90 m/s MV DecT: 234 ms MV A Titi: 0.59 m/s MV E/A Ratio: 1.53 RAP: 5.00 mmHg RVSP: 16.11 mmHg FINDINGS -------- Undetermined rhythm. Morbid Obesity The left ventricular size is normal. There is mild concentric left ventricular hypertrophy. Overa ll left ventricular systolic function is normal with, an EF between 55 - 60 %. The right ventricle is normal in size. The left atrial size is normal. The right atrial size is normal. There is mild aortic valve sclerosis. There is no evidence of aortic regurgitation. Mild mitral annular calcification present. Mild mitral regurgitation is present. Mild tricuspid regurgitation present. Right ventricular systolic pressure is normal at < 35 mmHg. There is no evidence of pulmonary hypertension. The pulmonic valve was not well visualized. Echo free space indicative of a pericardial fat pad. CONCLUSIONS -------- 1. Undetermined rhythm. 2. Morbid Obesity 3. The left ventricular size is normal. 4. There is mild concentric left ventricular hypertrophy. 5. Overall left ventricular systolic function is normal with, an EF between 55 - 60 %. 6. The right ventricle is normal in size. 7. The left atrial size is normal. 8. The right atrial size is normal. 9. There is mild aortic valve sclerosis. 10. Mild mitral annular calcification present. 11. Mild mitral regurgitation is present. 12. Mild tricuspid regurgitation present. 13. Right ventricular systolic pressure is normal at < 35 mmHg. 14. There is no evidence of pulmonary hypertension. 15. The pulmonic valve was not well visualized. 16. Echo free space indicative of a pericardial fat pad. LAB[employer]ER [employer]: Melisa Padgett RDCS
--- NOTE | 2019-09-22 17:22 | P.CRDCN ---
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 Recently patient was at [facility], having a computed tomography scan of chest and abdomen. 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 Patient spent several days in [facility]. Apparently he recovered most of his functions except the right facial droop and some incoordination and ataxia. Since coming home, patient blood pressure has been fluctuating. Patient also had given monitor. There was a consideration for RACHEL examination but was canceled because the neurologist didn't recommend it. He came to the hospital this time because of dizziness and sweating. The dizziness seemed to postural. He was also found to have fast heart rhythm. His EKG on arrival showed narrow complex tachycardia which is supraventricular. His troponin was mildly elevated. Patient did not experience any chest pain. He doesn't appear to be in acute distress and denied any shortness of breath. His being admitted to the hospital for treatment of supra ventricular arrhythmia. Rule out atrial flutter. Patient is being initiated on IV Cardizem and also by mouth metoprolol. He is also on IV heparin. Patient has been on aspirin and Plavix since his stroke Review of Systems As per the chart Past Medical History Past Medical History: CVA/TIA, Hypertension History of Any Multi-Drug Resistant Organisms: None Reported Past Surgical History: Cholecystectomy, Orthopedic Surgery Additional Past Surgical History / Comment(s): B Knee, L eye, B cataract, 5 ludivina holes, vasectomy Past Psychological History: No Psychological Hx Reported Smoking Status: Never smoker Past Alcohol Use History: Occasional Past Drug Use History: None Reported - Past Family History Father Additional Family Medical History / Comment(s): CA Mother Family Medical History: Respiratory Disorder Medications and Allergies Home Medications Medication Instructions Recorded Confirmed Type Sertraline [Zoloft] 50 mg PO DAILY 11/22/18 09/22/19 History Tamsulosin HCl [Flomax] 0.4 mg PO DAILY 11/22/18 09/22/19 History Aspirin 81 mg PO DAILY 09/22/19 09/22/19 History Atorvastatin [Lipitor] 80 mg PO HS 09/22/19 09/22/19 History Carvedilol [Coreg] 3.125 mg PO BID 09/22/19 09/22/19 History Clopidogrel [Plavix] 75 mg PO DAILY 09/22/19 09/22/19 History Famotidine [Pepcid] 20 mg PO DAILY 09/22/19 09/22/19 History Hydrochlorothiazide [Hydrodiuril] 25 mg PO DAILY 09/22/19 09/22/19 History Losartan [Cozaar] 50 mg PO DAILY 09/22/19 09/22/19 History Allergies Allergy/AdvReac Type Severity Reaction Status Date / Time hydromorphone [From Dilaudid] Allergy Rash/Hives Verified 09/22/19 12:44 Sulfa (Sulfonamide Allergy Unknown Verified 09/22/19 12:44 Antibiotics) Childhood Tetanus Vaccines and Toxoid Allergy Unknown Verified 09/22/19 12:44 Childhood morphine AdvReac Nausea & Verified 09/22/19 12:44 Vomiting Physical Exam Vitals: Vital Signs Temp Pulse Pulse Resp BP BP Pulse Ox 09/22/19 16:44 97.7 F 113 H 16 123/89 95 09/22/19 14:20 123 H 18 106/81 96 09/22/19 14:00 115 H 19 103/82 95 09/22/19 13:47 117 H 17 114/81 09/22/19 13:00 117/79 09/22/19 12:20 121 H 19 95 09/22/19 12:00 121 H 20 09/22/19 11:55 126 H 21 09/22/19 11:43 97.3 F L 130 H 20 106/71 93 L Intake and Output 09/22/19 09/22/19 09/22/19 06:59 14:59 22:59 Other: Weight 121.563 kg 120 kg GENERAL EXAM: Patient is alert and oriented and doesn't appear to be in any acute distress HEENT: Normocephalic. Normal reaction of pupils, equal size, normal range of extraocular motion. No erythema or exudates in the throat. NECK: No masses, no nuchal rigidity. CHEST: No chest wall deformity. LUNGS: Equal air entry with no crackles or wheeze. HEART: S1 and S2 normal with no audible mumurs or gallops. Regular rhythm, femorals equal on both sides.. ABDOMEN: No hepatosplenomegaly, normal bowel sounds, no guarding or rigidity. SKIN: No rashes CENTRAL NERVOUS SYSTEM: Right facial droop EXTREMITIES: No cyanosis, clubbing or edema. Results 09/22/19 12:30 09/22/19 12:30 Cardiac Enzymes 09/22/19 09/22/19 Range/Units 12:30 12:30 AST 47 (17-59) U/L Troponin I 0.110 H* (0.000-0.034) ng/mL Coagulation 09/22/19 Range/Units 12:30 PT 11.2 (9.0-12.0) sec APTT 28.9 (22.0-30.0) sec CBC 09/22/19 Range/Units 12:30 WBC 11.7 H (3.8-10.6) k/uL RBC 5.12 (4.30-5.90) m/uL Hgb 15.0 (13.0-17.5) gm/dL Hct 44.5 (39.0-53.0) % Plt Count 326 (150-450) k/uL Comprehensive Metabolic Panel 09/22/19 Range/Units 12:30 Sodium 136 L (137-145) mmol/L Potassium 4.7 (3.5-5.1) mmol/L Chloride 105 (98-107) mmol/L Carbon Dioxide 20 L (22-30) mmol/L BUN 23 H (9-20) mg/dL Creatinine 1.09 (0.66-1.25) mg/dL Glucose 113 H (74-99) mg/dL Calcium 9.4 (8.4-10.2) mg/dL AST 47 (17-59) U/L ALT 29 (4-49) U/L Alkaline Phosphatase 72 (38-126) U/L Total Protein 7.0 (6.3-8.2) g/dL Albumin 3.7 (3.5-5.0) g/dL Current Medications Generic Name Dose Route Start Last Admin Trade Name Freq PRN Reason Stop Dose Admin Aspirin 325 mg 09/23/19 09:00 Aspirin PO DAILY BILL Heparin Sodium (Porcine) 0 unit 09/22/19 14:24 09/22/19 15:22 Heparin IV 4,000 unit PER PROTOCOL PRN Administration Low PTT Protocol Sodium Chloride 1,000 mls @ 100 mls/hr 12/21/19 12:15 09/22/19 15:06 Saline 0.9% IV 09/22/19 22:14 100 mls/hr .Q10H STA Administration Heparin Sodium/Sodium Chloride 250 mls @ 9.725 mls/hr 09/22/19 14:30 09/22/19 15:22 25,000 unit/ Sodium Chloride IV 8 units/kg/hr .Q24H BILL 9.725 mls/hr Administration Protocol 8 UNITS/KG/HR Ceftriaxone Sodium 1 gm/ 50 mls @ 100 mls/hr 09/23/19 09:00 Sodium Chloride IVPB Q24HR BILL Diltiazem HCl 125 mg/ Sodium 125 mls @ 5 mls/hr 09/22/19 16:00 09/22/19 16:19 Chloride IV 5 mg/hr .Q24H BILL 5 mls/hr Administration 5 MG/HR Metoprolol Tartrate 25 mg 09/22/19 17:15 Lopressor PO TID BILL Nitroglycerin 0.4 mg 09/22/19 14:24 Nitrostat SUBLINGUAL Q5M PRN Chest Pain Intake and Output 09/22/19 09/22/19 09/22/19 06:59 14:59 22:59 Other: Weight 121.563 kg 120 kg Patient Weight 09/23/19 06:59 Weight 120 kg 09/22/19 12:30 09/22/19 12:30 EKG Interpretations (text) Supraventricular tachycardia versus atrial flutter Assessment and Plan (1) History of CVA (cerebrovascular accident) Current Visit: Yes Status: Acute Code(s): Z86.73 - PRSNL HX OF TIA (TIA), AND CEREB INFRC W/O RESID DEFICITS SNOMED Code(s): 449781542 (2) Atrial flutter Current Visit: Yes Status: Acute Code(s): I48.92 - UNSPECIFIED ATRIAL FLUTTER SNOMED Code(s): 6507565 (3) Elevated troponin Current Visit: Yes Status: Acute Code(s): R79.89 - OTHER SPECIFIED ABNORMAL FINDINGS OF BLOOD CHEMISTRY SNOMED Code(s): 181473842 (4) Labile hypertension Current Visit: Yes Status: Acute Code(s): R09.89 - OTH SYMPTOMS AND SIGNS INVOLVING THE CIRC AND RESP SYSTEMS SNOMED Code(s): 670432161 Plan: We will continue with IV Cardizem and beta ronnie. If necessary, may consider IV amiodarone. Continue with IV heparin. Echo is already done. Further recommendation will depend upon clinical course
[2019-09-22] MEDS: METOPROLOL TARTRATE 25 MG TAB PO SCH ×3 (17:33→22:24)
[2019-09-22] MEDS: ARTIFICIAL TEARS-HYPROMELLOSE DROPS 15 ML BTL BOTH EYES SCH ×2 (18:44→22:24)
[2019-09-22] MEDS: SODIUM CHLORIDE 0.9% 1,000 ML IV SCH (18:44)
[2019-09-22] MEDS: ATORVASTATIN 80 MG TAB PO SCH (22:24)
[2019-09-23] MEDS: METOPROLOL TARTRATE 25 MG TAB PO SCH ×4 (01:02→22:40)
[2019-09-23] MEDS: SODIUM CHLORIDE 0.9% 1,000 ML IV SCH ×2 (01:36→16:39)
[2019-09-23] MEDS ORDERED: ASPIRIN 325 MG TAB PO SCH (09:00)
[2019-09-23 09:29] LABS: Basophils # (A) 0.1 k/uL (0-0.2); Basophils % (A) 1 %; Eosinophils # (A) 0.8 k/uL (0-0.7); Eosinophils % (A) 9 %; HCT 41.8 % (39.0-53.0); HGB 13.8 gm/dL (13.0-17.5); Lymphocytes # (A) 1.6 k/uL (1.0-4.8); Lymphocytes % (A) 18 %; MCH 29.2 pg (25.0-35.0); MCV 88.6 fL (80.0-100.0); Mean Platelet Volume 8.3; Monocytes # (A) 0.5 k/uL (0-1.0); Monocytes % (A) 6 %; Neutrophils # (A) 5.5 k/uL (1.3-7.7); Neutrophils % (A) 64 %; Platelet Count 256 k/uL (150-450); RBC 4.72 m/uL (4.30-5.90); RDW 14.3 % (11.5-15.5); WBC 8.6 k/uL (3.8-10.6)
[2019-09-23] MEDS: LOSARTAN 50 MG TAB PO SCH (09:40)
[2019-09-23] MEDS: HYDROCHLOROTHIAZIDE 25 MG TAB PO SCH (09:40)
[2019-09-23] MEDS: TAMSULOSIN 0.4 MG CAP.ER.24H PO SCH (09:40)
[2019-09-23] MEDS: CLOPIDOGREL 75 MG TAB PO SCH (09:40)
[2019-09-23] MEDS: FAMOTIDINE 20 MG TAB PO SCH (09:40)
[2019-09-23] MEDS: SERTRALINE 50 MG TAB PO SCH (09:40)
[2019-09-23] MEDS: ARTIFICIAL TEARS-HYPROMELLOSE DROPS 15 ML BTL BOTH EYES SCH ×4 (09:41→22:43)
[2019-09-23] MEDS: ASPIRIN 81 MG PO SCH (09:41)
--- NOTE | 2019-09-23 10:07 | P.PN ---
Subjective This is a pleasant 74-year-old male past medical history significant for multiple CVAs, hypertension, dyslipidemia. He presented to the hospital with palpitations and then she needed an IV Cardizem and heparin. He is seen and examined sitting up eating breakfast in no acute distress. He denies any further symptoms of palpitations or shortness of breath. He has converted to sinus mechanism and Cardizem as been discontinued. Currently maintained on aspirin 81 mg daily, atorvastatin 80 mg daily, Plavix 75 mg daily, losartan 100 mg daily, hydrochlorothiazide 25 mg daily and metoprolol 25 mg 3 times a day. Blood pressure 135/76 heart rate 62 afebrile maintaining oxygen saturation on room air. Laboratory data reviewed, WBC 11.7, hemoglobin 15, platelets 326, sodium 136, potassium 4.7, creatinine 1.09, magnesium 1.9, troponin on admission 0.11, TSH 1.65. GENERAL: Well-appearing, well-nourished and in no acute distress. NECK: Supple without JVD or thyromegaly. LUNGS: Breath sounds clear to auscultation bilaterally. Respiration equal and unlabored. No wheezes, rales or rhonchi. HEART: Regular rate and rhythm without murmurs, rubs or gallops. S1 and S2 heard. EXTREMITIES: Normal range of motion, no edema. No clubbing or cyanosis. Peripheral pulses intact. ASSESSMENT Atrial flutter, typical. Converted to sinus mechanism Elevated troponin secondary to rapid heartbeat Hypertension History of CVA, right-sided facial droop PLAN IV Cardizem as been discontinued. He is maintaining sinus mechanism. Questionable hemorrhagic stroke in the past, long-term anticoagulation not initiated at this time. He is aware of this risk. We will request records from his neurologist for CVA history. Nurse Practitioner note has been reviewed, I agree with a documented findings and plan of care. Patient was seen and examined. Objective - Vital Signs Vital signs: Vital Signs Temp 97.2 F L 09/23/19 04:00 Pulse 62 09/23/19 04:00 Resp 18 09/23/19 04:00 BP 135/76 09/23/19 04:00 Pulse Ox 95 09/23/19 00:00 Intake & Output 09/22/19 09/23/19 09/23/19 18:59 06:59 18:59 Intake Total 490 329.033 120 Output Total 610 1 Balance 490 -280.967 119 Weight 120 kg 120.8 kg Intake: IV 10 30 Invasive Line 1 10 30 Intake, IV Titration 99.033 Amount Heparin Sod,Pork in 0.45% 99.033 NaCl 25,000 unit In 0.45 % NaCl 1 250ml.bag @ 8 UNITS/KG/HR 9.725 mls/hr IV .Q24H [facility] Rx#: [id number] Oral 480 200 120 Output: Urine 610 Urine/Stool Mix 1 Other: Voiding Method Indwelling Catheter Indwelling Catheter - Labs CBC & Chem 7: 09/23/19 08:50 09/22/19 12:30 Labs: Abnormal Lab Results - Last 24 Hours (Table) 09/22/19 09/22/19 09/22/19 Range/Units 12:30 12:30 12:30 WBC 11.7 H (3.8-10.6) k/uL Neutrophils # 8.1 H (1.3-7.7) k/uL APTT (22.0-30.0) sec Sodium 136 L (137-145) mmol/L Carbon Dioxide 20 L (22-30) mmol/L BUN 23 H (9-20) mg/dL Glucose 113 H (74-99) mg/dL Troponin I 0.110 H* (0.000-0.034) ng/mL Urine Protein (Negative) Urine Blood (Negative) Ur Leukocyte Esterase (Negative) Urine RBC (0-5) /hpf Urine WBC (0-5) /hpf Urine WBC Clumps (None) /hpf Urine Bacteria (None) /hpf Hyaline Casts (0-2) /lpf Urine Mucus (None) /hpf 09/22/19 09/23/19 09/23/19 Range/Units 12:42 00:59 05:47 WBC (3.8-10.6) k/uL Neutrophils # (1.3-7.7) k/uL APTT 42.5 H 50.3 H (22.0-30.0) sec Sodium (137-145) mmol/L Carbon Dioxide (22-30) mmol/L BUN (9-20) mg/dL Glucose (74-99) mg/dL Troponin I (0.000-0.034) ng/mL Urine Protein Trace H (Negative) Urine Blood Trace H (Negative) Ur Leukocyte Esterase Large H (Negative) Urine RBC 6 H (0-5) /hpf Urine WBC 119 H (0-5) /hpf Urine WBC Clumps Rare H (None) /hpf Urine Bacteria Occasional H (None) /hpf Hyaline Casts 18 H (0-2) /lpf Urine Mucus Occasional H (None) /hpf Microbiology - Last 24 Hours (Table) 09/22/19 12:42 Urine Culture - Preliminary Urine,Voided
[2019-09-23] MEDS ORDERED: amLODIPine 5 MG TAB PO SCH (16:15)
[2019-09-23] MEDS: HEPARIN SOD,PORK IN 0.45% NACL 25,000 UNIT in 0.45% NACL 1 250ML.BAG IV SCH (16:47)
--- NOTE | 2019-09-23 20:04 | P.HPIM ---
History of Present Illness H&P Date: 09/23/19 Chief Complaint: dizzy and sweating History of presenting complaint: This is a pleasant 74-year-old patient who follows with Dr. Real Chino. On July 16 patient had a stroke and was at [facility]. Resulting in right-sided weakness, dysarthria. informs me that the patient did receive the clot Boster for the same. Patient back in the had a knee replacement done by Dr. Garcia. Was given Coumadin for anticoagulation. Her GI bleed. Also had a blood clot at that time apparently. IVC filter was placed. Now, presents after taking a shower and feeling dizzy and perspiring. decided to bring him to the ER. Patient was found to be in atrial fibrillation with rapid ventricular rate. Patient's been IV heparin and also put on IV Cardizem. Car diology was consulted. Patient is able to talk do-dysarthric. Patient's at the bedside give most of the history.. There is no chest pain no palpitation. Patient's is rather skeptical about using anticoagulation due to the prior GI bleed. Now that was Coumadin. Now she does not want the consequences of atrial fibrillation with rather have blood thinners. Review of systems: GEN.: Tired EYES: None HEENT: None NECK: None RESPIRATORY: None CARDIOVASCULAR: None GASTROINTESTINAL: None GENITOURINARY: None MUSCULOSKELETAL: None LYMPHATICS: None HEMATOLOGICAL: None PSYCHIATRY: None NEUROLOGICAL: [Right-sided weakness with facial asymmetry and dysarthria Past medical history to include: -Stroke on 07/16/2019 resulting in dysarthria and right-sided weakness, IVC filter, peptic also disease, aneurysm, Agent Barton exposure Social history: Does not smoke. Alcohol occasionally. 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 . Physical examination: VITAL SIGNS: 97.1, 58, 18, 168/87, 95% room air GENERAL: BMI 36.1, laying in bed awake. EYES: Pupils equal. Conjunctiva normal. HEENT: External appearance of nose and ears normal, oral cavity grossly normal. NECK: JVD not raised; masses not palpable. HEART: Heart sounds irregular; no edema. LUNGS: Respiratory rate normal; clear to auscultation. ABDOMEN: Soft, nontender, liver spleen not palpable, no masses palpable. PSYCH: Alert and oriented x3; mood and affect normal. NEUROLOGICAL: Facial asymmetry present, multiple to the left right eye lower eyelid is everted, dysarthria, decreased power on the right side. LYMPHATICS: No lymph nodes palpable in the axilla and neck INVESTIGATIONS, reviewed in the clinical context: White count 8.6 hemoglobin 13.8 platelets 256 potassium 4.7 bun 23 creatinine 1.09 Troponin I 0.110, 0.240, TSH normal UA positive for leukoesterase, WBC Chest x-ray film personally reviewed by me-shows possible fluid prominence EKG tracing personally reviewed by me-possible atrial flutter with rapid ventricular rate versus SVT Assessment: -Possible atrial flutter with a rapid ventricular rate versus SVT -Dysarthria from recent stroke -Right hemiparesis from recent stroke, very unlikely to be hemorrhagic as the patient did receive a clot Boster according to the . -History of IVC filter -Essential hypertension -Troponin leak likely related to rapid ventricular rate. No clinical evidence of acute cardiac syndrome. Plan: Patient was initially put on IV heparin. Cardiology is following up on the same. It is unlikely the stroke was hemorrhagic given that the patient did rec eive a clot Boster as per the . Patient did get IV Cardizem and beta blockers. 2-D echocardiogram was done. Care was discussed with the patient and at the bedside. Questions were answered. Follow with [facility]. Past Medical History Past Medical History: CVA/TIA, Hypertension Additional Past Medical History / Comment(s): CVA July 16, 2019 right sided weakness and facial/eye droop. aneurysmes, thorax, abdomen, L. iliac. Agent orange exposure. IVC filter ; Bleeding ulcer ; History of Any Multi-Drug Resistant Organisms: None Reported Past Surgical History: Cholecystectomy, Orthopedic Surgery Additional Past Surgical History / Comment(s): B Knee, L eye, B cataract, 5 ludivina holes for hematoma, vasectomy Past Anesthesia/Blood Transfusion Reactions: No Reported Reaction Past Psychological History: No Psychological Hx Reported Smoking Status: Never smoker Past Alcohol Use History: Occasional Past Drug Use History: None Reported - Past Family History Father Additional Family Medical History / Comment(s): CA Mother Family Medical History: Respiratory Disorder Medications and Allergies Home Medications Medication Instructions Recorded Confirmed Type Sertraline [Zoloft] 50 mg PO DAILY 11/22/18 09/22/19 History Tamsulosin HCl [Flomax] 0.4 mg PO DAILY 11/22/18 09/22/19 History Aspirin 81 mg PO DAILY 09/22/19 09/22/19 History Atorvastatin [Lipitor] 80 mg PO HS 09/22/19 09/22/19 History Carvedilol [Coreg] 3.125 mg PO BID 09/22/19 09/22/19 History Clopidogrel [Plavix] 75 mg PO DAILY 09/22/19 09/22/19 History Famotidine [Pepcid] 20 mg PO DAILY 09/22/19 09/22/19 History Hydrochlorothiazide [Hydrodiuril] 25 mg PO DAILY 09/22/19 09/22/19 History Losartan [Cozaar] 50 mg PO DAILY 09/22/19 09/22/19 History Propylene Glycol [Systane Complete] 1 drop BOTH EYES QID 09/22/19 09/22/19 History Allergies Allergy/AdvReac Type Severity Reaction Status Date / Time hydromorphone [From Dilaudid] Allergy Rash/Hives Verified 09/22/19 12:44 Sulfa (Sulfonamide Allergy Unknown Verified 09/22/19 12:44 Antibiotics) Childhood Tetanus Vaccines and Toxoid Allergy Unknown Verified 09/22/19 12:44 Childhood morphine AdvReac Nausea & Verified 09/22/19 12:44 Vomiting Physical Exam Vitals: Vital Signs Temp Pulse Pulse Resp BP BP Pulse Ox 09/23/19 11:58 57 L 18 09/23/19 11:56 97.6 F 57 L 18 173/89 97 09/23/19 08:00 97.1 F L 58 L 18 168/87 95 09/23/19 04:00 97.2 F L 62 18 135/76 09/23/19 00:00 97 F L 68 18 116/74 95 09/22/19 20:00 67 18 09/22/19 19:55 97 F L 67 18 114/72 96 09/22/19 18:19 98 09/22/19 16:44 97.7 F 113 H 16 123/89 95 09/22/19 16:00 113 H 16 09/22/19 14:20 123 H 18 106/81 96 09/22/19 14:00 115 H 19 103/82 95 09/22/19 13:47 117 H 17 114/81 12/21/19 13:00 117/79 Intake and Output 09/22/19 09/23/19 09/23/19 22:59 06:59 14:59 Intake Total 700 119.033 340 Output Total 314 730 5372 Balance 490 -280.967 -1061 Intake: IV 20 20 20 Invasive Line 1 20 20 20 Intake, IV Titration 99.033 Amount Heparin Sod,Pork in 0.45% 99.033 NaCl 25,000 unit In 0.45 % NaCl 1 250ml.bag @ 8 UNITS/KG/HR 9.725 mls/hr IV .Q24H [facility] Rx#: [id number] Oral 680 320 Output: Urine 493 989 9846 Urine/Stool Mix 1 Other: Voiding Method Indwelling Catheter Indwelling Catheter Indwelling Catheter # Bowel Movements 0 Weight 120 kg 120.8 kg Results CBC & Chem 7: 09/23/19 08:50 09/22/19 12:30 Labs: Abnormal Lab Results - Last 24 Hours (Table) 09/22/19 09/22/19 09/22/19 Range/Units 12:30 12:30 12:42 Eosinophils # (0-0.7) k/uL APTT (22.0-30.0) sec Sodium 136 L (137-145) mmol/L Carbon Dioxide 20 L (22-30) mmol/L BUN 23 H (9-20) mg/dL Glucose 113 H (74-99) mg/dL Troponin I 0.110 H* (0.000-0.034) ng/mL Urine Protein Trace H (Negative) Urine Blood Trace H (Negative) Ur Leukocyte Esterase Large H (Negative) Urine RBC 6 H (0-5) /hpf Urine WBC 119 H (0-5) /hpf Urine WBC Clumps Rare H (None) /hpf Urine Bacteria Occasional H (None) /hpf Hyaline Casts 18 H (0-2) /lpf Urine Mucus Occasional H (None) /hpf 09/23/19 09/23/19 09/23/19 Range/Units 00:59 05:47 08:50 Eosinophils # 0.8 H (0-0.7) k/uL APTT 42.5 H 50.3 H (22.0-30.0) sec Sodium (137-145) mmol/L Carbon Dioxide (22-30) mmol/L BUN (9-20) mg/dL Glucose (74-99) mg/dL Troponin I (0.000-0.034) ng/mL Urine Protein (Negative) Urine Blood (Negative) Ur Leukocyte Esterase (Negative) Urine RBC (0-5) /hpf Urine WBC (0-5) /hpf Urine WBC Clumps (None) /hpf Urine Bacteria (None) /hpf Hyaline Casts (0-2) /lpf Urine Mucus (None) /hpf 09/23/19 Range/Units 08:50 Eosinophils # (0-0.7) k/uL APTT (22.0-30.0) sec Sodium (137-145) mmol/L Carbon Dioxide (22-30) mmol/L BUN (9-20) mg/dL Glucose (74-99) mg/dL Troponin I 0.240 H* (0.000-0.034) ng/mL Urine Protein (Negative) Urine Blood (Negative) Ur Leukocyte Esterase (Negative) Urine RBC (0-5) /hpf Urine WBC (0-5) /hpf Urine WBC Clumps (None) /hpf Urine Bacteria (None) /hpf Hyaline Casts (0-2) /lpf Urine Mucus (None) /hpf Microbiology - Last 24 Hours (Table) 09/22/19 12:42 Urine Culture - Preliminary Urine,Voided Thrombosis Risk Factor Assmnt - Choose All That Apply Any of the Below Risk Factors Present?: Yes Each Factor Represents 1 point: Obesity (BMI >25) Other Risk Factors: Yes Each Risk Factor Represents 2 Points: Age 61-74 years Each Risk Factor Represents 3 Points: History of DVT/PE Thrombosis Risk Factor Assessment Total Risk Factor Score: 6 Thrombosis Risk Factor Assessment Level: High Risk
[2019-09-23] MEDS ORDERED: amLODIPine 5 MG TAB PO STA (20:34)
[2019-09-23] MEDS: ATORVASTATIN 80 MG TAB PO SCH (20:46)
[2019-09-23] MEDS ORDERED: METOPROLOL TARTRATE 50 MG TAB PO SCH (21:00)
[2019-09-23] MEDS ORDERED: METOPROLOL TARTRATE 25 MG TAB PO SCH (21:00)
[2019-09-24 04:49] VITALS: RESP 16
[2019-09-24] MEDS: LISINOPRIL 5 MG TAB PO SCH ×2 (05:20→10:59)
[2019-09-24 06:55] LABS: HGB 14.7 gm/dL (13.0-17.5); MCH 30.2 pg (25.0-35.0); MCHC 34.1 g/dL (31.0-37.0); MCV 88.7 fL (80.0-100.0); Mean Platelet Volume 8.4; Platelet Count 267 k/uL (150-450); RBC 4.85 m/uL (4.30-5.90); RDW 14.3 % (11.5-15.5)
[2019-09-24 07:11] LABS: Calcium 9.3 mg/dL (8.4-10.2); Potassium 4.3 mmol/L (3.5-5.1)
[2019-09-24] MEDS: ASPIRIN 81 MG PO SCH (10:55)
[2019-09-24] MEDS: FAMOTIDINE 20 MG TAB PO SCH (10:55)
[2019-09-24] MEDS: LOSARTAN 50 MG TAB PO SCH (10:55)
[2019-09-24] MEDS: METOPROLOL TARTRATE 25 MG TAB PO SCH ×2 (10:55→21:31)
[2019-09-24] MEDS: HYDROCHLOROTHIAZIDE 25 MG TAB PO SCH (10:56)
[2019-09-24] MEDS: CLOPIDOGREL 75 MG TAB PO SCH (10:56)
[2019-09-24] MEDS: TAMSULOSIN 0.4 MG CAP.ER.24H PO SCH (10:56)
[2019-09-24] MEDS: SERTRALINE 50 MG TAB PO SCH (10:56)
[2019-09-24] MEDS: amLODIPine 10 MG TAB PO SCH (10:59)
[2019-09-24] MEDS: ARTIFICIAL TEARS-HYPROMELLOSE DROPS 15 ML BTL BOTH EYES SCH ×4 (11:00→21:31)
[2019-09-24] MEDS ORDERED: hydrALAZINE HCL 25 MG TAB PO SCH (11:00)
--- NOTE | 2019-09-24 12:28 | P.PN ---
Subjective Progress Note Date: 09/24/19 This is a 74-year-old gentleman with history of hypertension and also aneurysm of the thoracic and abdominal aortic aneurysm and also femoral aneurysm who follows with the vascular surgeon at [facility]. Recently patient was at [facility], having a computed tomography scan of chest and abdomen. 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 Patient spent several days in [facility]. Apparently he recovered most of his functions except the right facial droop and some incoordination and ataxia. Since coming home, patient blood pressure has been fluctuating. Patient also had given monitor. There was a consideration for RACHEL examination but was canceled because the neurologist didn't recommend it. He came to the hospital this time because of dizziness and sweating. The dizziness seemed to postural. He was also found to have fast heart rhythm. His EKG on arrival showed narrow complex tachycardia which is supraventricular. His troponin was mildly elevated. Patient did not experience any chest pain. He doesn't appear to be in acute distress and denied any shortness of breath. His being admitted to the hospital for treatment of supraventricular arrhythmia. Rule out atrial flutter. Patient is being initiated on IV Cardizem and also by mouth metoprolol. He is also on IV heparin. Patient has been on aspirin and Plavix since his stroke 09/24/2019 Patient is remaining in normal sinus rhythm this morning, blood pressure 164/90 with a heart rate in the 60s.White blood cell count 9.0, hemoglobin 14.7, platelet count 267. Sodium 138, potassium 4.3, BUN 23 and creatinine 1.0. Objective - Vital Signs Vital signs: Vital Signs Temp 98 F 09/23/19 20:00 Pulse 59 L 09/24/19 04:46 Resp 16 09/24/19 04:46 BP 165/96 09/24/19 06:36 Pulse Ox 96 09/24/19 04:46 Intake & Output 09/23/19 09/24/19 09/24/19 18:59 06:59 18:59 Intake Total 610 300 Output Total 3201 3300 Balance -2591 -3300 300 Weight 118.7 kg Intake: IV 30 Invasive Line 1 30 Oral 580 300 Output: Urine 3200 3300 Urine/Stool Mix 1 Other: Voiding Method Indwelling Catheter Indwelling Catheter # Voids 0 # Bowel Movements 0 - Exam GENERAL EXAM: Patient is alert and oriented and doesn't appear to be in any acute distress HEENT: Normocephalic. Normal reaction of pupils, equal size, normal range of extraocular motion. No erythema or exudates in the throat. NECK: No masses, no nuchal rigidity. CHEST: No chest wall deformity. LUNGS: Equal air entry with no crackles or wheeze. HEART: S1 and S2 normal with no audible mumurs or gallops. Regular rhythm, femorals equal on both sides.. ABDOMEN: No hepatosplenomegaly, normal bowel sounds, no guarding or rigidity. SKIN: No rashes CENTRAL NERVOUS SYSTEM: Right facial droop EXTREMITIES: No cyanosis, clubbing or edema. - Labs CBC & Chem 7: 09/24/19 05:54 09/24/19 05:54 Labs: Abnormal Lab Results - Last 24 Hours (Table) 09/24/19 Range/Units 05:54 BUN 23 H (9-20) mg/dL Microbiology - Last 24 Hours (Table) 09/22/19 12:42 Urine Culture - Preliminary Urine,Voided Group D Enterococcus Assessment and Plan Plan: ASSESSMENT #1Atrial flutter, typical. Converted to sinus mechanism #2Elevated troponin secondary to rapid heartbeat #3Hypertension #4History of CVA, right-sided facial droop PLAN from cardiology's perspective, patient may be able to be discharged home, we'll make a follow-up appointment in the office post discharge. DNP note has been reviewed, I agree with a documented findings and plan of care. Patient was seen and examined.
--- NOTE | 2019-09-24 14:49 | CT ---
EXAMINATION TYPE: CT brain wo con DATE OF EXAM: 09/24/2019 COMPARISON: 07/14/2019 HISTORY: Weakness with history of Right sided CVA. CT DLP: 1231.[address] of the brain was performed. The ventricles, basal cisterns and sulci overlying the cerebral convexities demonstrate moderate enla rgement. There is no evidence for intracranial hemorrhage or sulcal effacement. There is decreased attenuation about the periventricular white matter and deep white matter of both c erebral hemispheres, compatible with chronic small vessel ischemia. Differential diagnosis does inclu de demyelination. No mass effects are seen.No midline shift. Osseous calvarium is intact. Malformation noted. If symptoms persist consider MRI. IMPRESSION: 1. Age related atrophic and chronic small vessel ischemic change without acute intracranial process s een at this time.
[2019-09-24 15:46] LABS: Appearance,Urine Clear (Clear); Bacteria,Urine Rare /hpf; Bilirubin,Urine Negative (Negative); Blood,Urine Negative (Negative); Color,Urine Light Yellow; Glucose,Urine (UA) Negative (Negative); Ketones,Urine Negative (Negative); Leukocyte Esterase,Urine Small (Negative); Mucus,Urine Rare /hpf; Nitrite,Urine Negative (Negative); PH, Urine 5.5 (5.0-8.0); Protein,Urine Negative (Negative); RBC,Urine 1 /hpf (0-5); Urobilinogen,Urine <2.0 mg/dL (<2.0); WBC,Urine 1 /hpf (0-5)
[2019-09-24] MEDS: hydrALAZINE HCL 25 MG TAB PO SCH (18:37)
--- NOTE | 2019-09-24 18:37 | CONS ---
CONSULTATION DATE OF SERVICE: 09/24/2019 REASON FOR FOLLOWUP: Enterococcus-positive urine culture and antibiotic. HISTORY OF PRESENT ILLNESS: The patient is a 74-year-old male who recently did have a CVA in July of 2019. The patient apparently did have problems with urinary retention and required chronic indwelling Hough catheter, which apparently was recently changed in the outpatient setting. The patient was brought into the ER at [facility] on 09/22/2019 with fluctuating blood pressure and elevated heart rate of 130. The patient denies any chest pain or any palpitation. No focal weakness or any dyspnea. On arrival in the ER the patient was afebrile and his white count was mildly elevated at 11.7. The patient did have a UA obtained that was from a Hough catheter that had been there for more than a week which showed large leukocyte esterases with 119 WBCs. The patient currently is being treated with Rocephin. Urine is now showing enterococcus with sensitivities pending. I was asked to see the patient regarding need for further antibiotic therapy. The patient overall is feeling fine. The patient denies having any chest pain or shortness of breath or cough. No nausea, no vomiting, no abdominal pain and no diarrhea. He is anxious to go home. REVIEW OF SYSTEMS: Positive points have been mentioned in the HPI. Rest of the systems are negative. PAST MEDICAL HISTORY: 1. CVA, TIA. 2. Hypertension. PAST SURGICAL HISTORY: 1. Cholecystectomy. 2. Bilateral knee surgery. 3. Cataract surgery. 4. Vasectomy. SOCIAL HISTORY: No history of smoking. Occasionally drinks alcohol. No drug use. FAMILY HISTORY: No pertinent findings noticed. ALLERGIES: 1. SULFA. 2. TETANUS TOXOID. 3. MORPHINE. CURRENT MEDICATIONS: 1. Norvasc. 2. Eliquis. 3. Aspirin. 4. Lipitor. 5. Rocephin 1 gram daily. 6. Plavix. 7. Pepcid. 8. Hydralazine. 9. Hydrochlorothiazide. 10.Cozaar. 11.Lopressor. 12.Nitrostat. 13.Zoloft. 14.Flomax. PHYSICAL EXAMINATION: Blood pressure is 153/83 with a pulse of 66, temperature 98.2. He is 95% on room air. General description is an elderly male lying in bed in no distress. No tachypnea or accessory muscle of respiration use. HEENT: Examination shows no pallor or scleral icterus. Oral mucosa membrane is dry. No pharyngeal erythema or thrush. NECK: Trachea central. No thyromegaly. LUNGS: Unlabored breathing. Clear to auscultation anteriorly. No wheeze or crackle. HEART: S1, S2. Regular rate and rhythm. ABDOMEN: Soft. No tenderness. EXTREMITIES: No edema of the feet. GENITOURINARY: The patient did have a Hough catheter draining clear urine. LABS: Hemoglobin 14.7, white count 9.0. Admission white count was slightly elevated at 11.7 with a BUN of 23, creatinine 1.06. We did request a repeat UA which came back pretty clean with only small leukocyte esterase and no WBC. Sensitivity of enterococcus currently pending. DIAGNOSTIC IMPRESSION AND PLAN: Patient with a positive urine culture for enterococcus which is possibly a Hough colonizer. That Hough has already been changed. The patient subsequently did have a UA that is not significantly positive and the patient currently has no fever or elevated white count. No suprapubic discomfort. Positive urine culture likely representing colonization. No need for any specific antibiotic therapy on discharge. Communicated to the RN. MMQUINNL / IJN: [id number] /
[2019-09-24] MEDS ORDERED: APIXABAN 5 MG TAB PO SCH (21:00)
[2019-09-24] MEDS: ATORVASTATIN 80 MG TAB PO SCH (21:31)
--- NOTE | 2019-09-24 21:53 | P.PN ---
Subjective This is a pleasant 74-year-old male past medical history significant for multiple CVAs, hypertension, dyslipidemia. He presented to the hospital with palpitations , sweating and did not feel good after finishing his shower. While spoke with the regional account manager who instructed him to come to emergency room where patient found to have atrial flutter with rapid ventricular rate. patient evaluated by regional account manager. He was treated with IV Cardizem and heparin initially, however his rhythm is convert to sinus rhythm and Cardizem as been discontinued , heparin was held for possible history of stroke. However patient is on aspirin Plavix and he'll continue with that i called and talked to his pcp , who confirmed pt had hemorrage in his brain about 10 yrs ago, subdural hematoma as per , but 2 months ago he had ischemic stroke, also pt has aortic aneurysm about 4.8 cm on 01/2019. repeat ct of brain showing no hemorrhage Fire Management Specialist wanted to rule out hemorrhagic stroke 2 months ago before starting anticoagulation as per regional account manager no need for anticoagulation as pt has SVT rather than a flutter/fibrillation Patient also has been evaluated by infectious disease team for enterococcus UTI related to his Hough catheter, and will continue with antibiotics as per recommendation. patient denies chest pain or dyspnea, no palpitation, no dizziness. No nausea vomiting. No change in urine or bowel habits. No fever. He is tolerating his diet. Patient prefers to be discharged today. Patient states that his back to his baseline and he was to go home today. Patient told me he has a follow-up appointment with his PCP, regional account manager, and neurologist on this coming month of October however the has the exact dates at home. Patient is to continue to follow up. Also said that he has outpatient appointment with his physical therapist tomorrow that the pain tends to adhere to. discussed with staff ROS CONSTITUTIONAL: No fever, no malaise, no fatigue. HEENT: No recent visual problems or hearing problems. Denied any sore throat. CARDIOVASCULAR: No orthopnea, PND, no palpitations, no syncope. PULMONARY: No shortness of breath, no cough, no hemoptysis. GASTROINTESTINAL: No diarrhea, no nausea, no vomiting, no abdominal pain. Normoactive bowel sounds. NEUROLOGICAL: No headaches, no weakness, no numbness. HEMATOLOGICAL: Denies any bleeding or petechiae. GENITOURINARY: Denies any burning micturition, frequency, or urgency. MUSCULOSKELETAL/RHEUMATOLOGICAL: Denies any joint pain, swelling, or any muscle pain. ENDOCRINE: Denies any polyuria or polydipsia. Active Medications Generic Name Dose Route Start Last Admin Trade Name Freq PRN Reason Stop Dose Admin Amlodipine Besylate 10 mg 09/24/19 09:00 09/24/19 10:59 Norvasc PO 10 mg DAILY BILL Administration Artificial Tears 1 drops 09/22/19 18:00 09/24/19 21:31 Artificial Tear Drops BOTH EYES Not Given QID BILL Aspirin 81 mg 09/23/19 09:00 09/24/19 10:55 Aspirin PO 81 mg DAILY BILL Administration Atorvastatin Calcium 80 mg 09/22/19 21:00 09/24/19 21:31 Lipitor PO 80 mg HS BILL Administration Clopidogrel Bisulfate 75 mg 09/23/19 09:00 09/24/19 10:56 Plavix PO 75 mg DAILY BILL Administration Famotidine 20 mg 09/23/19 09:00 09/24/19 10:55 Pepcid PO 20 mg DAILY BILL Administration Hydralazine HCl 50 mg 09/24/19 18:15 09/24/19 18:37 Apresoline PO 50 mg BID BILL Administration Hydrochlorothiazide 25 mg 09/23/19 09:00 09/24/19 10:56 Hydrodiuril PO 25 mg DAILY BILL Administration Ceftriaxone Sodium 1 gm/ 50 mls @ 100 mls/hr 09/23/19 09:00 09/24/19 11:00 Sodium Chloride IVPB 100 mls/hr Q24HR BILL Administration Losartan Potassium 100 mg 09/23/19 09:00 09/24/19 10:55 Cozaar PO 100 mg DAILY BILL Administration Metoprolol Tartrate 25 mg 09/23/19 21:00 09/24/19 21:31 Lopressor PO 25 mg BID BILL Administration Nitroglycerin 0.4 mg 09/22/19 14:24 Nitrostat SUBLINGUAL Q5M PRN Chest Pain Sertraline HCl 50 mg 09/23/19 09:00 09/24/19 10:56 Zoloft PO 50 mg DAILY BILL Administration Tamsulosin HCl 0.4 mg 09/23/19 09:00 09/24/19 10:56 Flomax PO 0.4 mg DAILY BILL Administration Objective - Vital Signs Vital signs: Vital Signs Temp 97.2 F L 09/24/19 16:00 Pulse 61 09/24/19 16:00 Resp 16 09/24/19 16:00 BP 184/87 09/24/19 16:00 Pulse Ox 95 09/24/19 16:00 Intake & Output 09/23/19 09/24/19 09/24/19 18:59 06:59 18:59 Intake Total 610 550 Output Total 3201 3300 1500 Balance -2591 -3300 -950 Weight 118.7 kg Intake: IV 30 50 Invasive Line 1 30 cefTRIAXone 1 gm In 50 Sodium Chloride 0.9% 50 ml @ 100 mls/hr IVPB Q24HR BILL Rx#:[id number] Oral 580 500 Output: Urine 3200 3300 1500 Uretheral (Hough) 1500 Urine/Stool Mix 1 Other: Voiding Method Indwelling Catheter Indwelling Catheter Indwelling Catheter # Voids 0 # Bowel Movements 0 - Labs CBC & Chem 7: 09/24/19 05:54 09/24/19 05:54 Labs: Abnormal Lab Results - Last 24 Hours (Table) 09/24/19 09/24/19 Range/Units 05:54 15:00 BUN 23 H (9-20) mg/dL Ur Leukocyte Esterase Small H (Negative) Urine Bacteria Rare H (None) /hpf Urine Mucus Rare H (None) /hpf Microbiology - Last 24 Hours (Table) 09/22/19 12:42 Urine Culture - Preliminary Urine,Voided Group D Enterococcus Assessment and Plan Assessment: -SVT rather than a flutter/fibrillation -acute urinary tract infection with enterococcus, related to Hough catheter. Present on admission -recent history of left-sided stroke and resultant left facial weakness and some degree of mild Dysarthria -Right hemiparesis from recent stroke, secondary to above -Chronic indwelling Hough catheter secondary to stroke -History of IVC filter -Essential hypertension -Troponin leak likely related to rapid ventricular rate. No clinical evidence of acute cardiac syndrome. Plan: continue with asprin and plavix , no need for anticoagulation as per cardiology team. ID team were consulted for antibiotics. pt is on rocephin currently Continue same treatment. Continue with symptomatic treatment. Resume home medication. Monitor lytes and vitals. DVT and GI prophylaxis. Further recommendations of the clinical course of the patient DVT prophylaxis: Subcutaneous heparin GI Prophylaxis: Pepcid Prognosis is guarded
[2019-09-24 22:20] VITALS: TEMP 97.7
[2019-09-25] MEDS: AMPICILLIN-SULBACTAM 1.5 GM in SODIUM CHLORIDE 0.9% 50 ML IVPB SCH ×2 (00:42→06:13)
[2019-09-25] MEDS: TAMSULOSIN 0.4 MG CAP.ER.24H PO SCH (08:55)
[2019-09-25] MEDS: ASPIRIN 81 MG PO SCH (08:55)
[2019-09-25] MEDS: amLODIPine 10 MG TAB PO SCH (08:55)
[2019-09-25] MEDS: HYDROCHLOROTHIAZIDE 25 MG TAB PO SCH (08:55)
[2019-09-25] MEDS: METOPROLOL TARTRATE 25 MG TAB PO SCH (08:56)
[2019-09-25] MEDS: LOSARTAN 50 MG TAB PO SCH (08:56)
[2019-09-25] MEDS: CLOPIDOGREL 75 MG TAB PO SCH (08:56)
[2019-09-25] MEDS: FAMOTIDINE 20 MG TAB PO SCH (08:56)
[2019-09-25] MEDS: ARTIFICIAL TEARS-HYPROMELLOSE DROPS 15 ML BTL BOTH EYES SCH (08:57)
[2019-09-25] MEDS: SERTRALINE 50 MG TAB PO SCH (08:57)
[2019-09-25] MEDS: hydrALAZINE HCL 25 MG TAB PO SCH (08:57)
--- NOTE | 2019-09-25 11:19 | P.DS ---
Providers Date of admission: 09/22/19 14:24 Attending physician: Olegario Barron Consults: 09/22/19 14:24 Consult Physician Urgent Consulting Provider: Mike Olvera Consult Reason/Comments: Suspected atrial flutter, elevated troponin, recent stroke Do you want consulting provider notified?: Yes 09/23/19 21:44 Consult Physician Routine Consulting Provider: Luis Jimenez Consult Reason/Comments: enteroccocus UTI Do you want consulting provider notified?: Yes, Notify in am Primary care physician: Real Calix [facility] Course: diagnoses: -atrial tachycardia, mostly SVT rather than atrial flutter with a rapid ventricular rate , patient is at sinus rhythmon discharge -acute urinary tract infection with enterococcus, related to Hough catheter. Present on admission. Improved patient does not need antibiotics upon discharge -recent history of left-sided stroke and resultant left facial weakness and some degree of mild Dysarthria -Right hemiparesis from recent stroke, secondary to above -Chronic indwelling Hough catheter secondary to stroke -History of IVC filter -Essential hypertension -Troponin leak likely related to rapid ventricular rate. No clinical evidence of acute cardiac syndrome. Hospital course: This is a pleasant 74-year-old male past medical history significant for multiple CVAs, hypertension, dyslipidemia. He presented to the hospital with palpitations , sweating and did not feel good after finishing his shower. While spoke with the court abstractor who instructed him to come to emergency room where patient suspected to have atrial flutter with rapid ventricular rate. patient evaluated by court abstractor. He was treated with IV Cardizem and heparin initially, however his rhythm is convert to sinus rhythm and Cardizem as been discontinued , heparin was held for possible history of stroke. However patient is on aspirin Plavix and he'll continue with that. With further review court abstractor thinks that this is SVT rather than atrial flutter, this was co nfirmed with the court abstractor from cardiology team. As per cardiology team patient might benefit from 2 week monitor of his heart rate and rhythm but this can be done as an outpatient. Patient is also offered to be discharged. Patient does not need anticoagulation upon discharge. CT of the brain is negative for any hemorrhage. Patient blood pressure is controlled after adding hydralazine 50 mg twice daily, as well as metoprolol and Norvasc. Continue with hydrochlorothiazide, aspirin and Plavix Patient also has been evaluated by infectious disease team for enterococcus UTI related to his Hough catheter, repeat UA is negative. And infectious disease recommended no antibiotics on discharge as she finishes her course of therapy patient denies chest pain or dyspnea, no palpitation, no dizziness. No nausea vomiting. No change in urine or bowel habits. No fever. He is tolerating his diet. Patient prefers to be discharged today. Patient states that his back to his baseline and he was to go home today. Patient told me he has a follow-up appointment with his PCP, court abstractor, and neurologist on this coming month of October however the has the exact dates at home. Patient is to continue to follow up. Also said that he has outpatient appointment with his physical therapist tomorrow that the pain tends to adhere to. patient was cleared for discharge by court abstractor. Problems and management plan were discussed with the patient and he verbalized understanding and acceptance Patient was found stable and can be discharged home however he needs follow-up as an outpatient. Patient was instructed to follow up with PCP within one week and patient agrees. Patient states that he will follow-up with his PCP, court abstractor, neurologist and physical therapist as above. Patient states that he has already 2 weeks heart monitor done recently and they going to follow up with his own court abstractor for the results Gen: patient is a AAOx3, no distress CVS: S1-S2, RRR, no murmur Lungs: B/L CTA, no wheezing Abdomen: soft, no distention, no tenderness, positive bowel sounds Extremity: no leg edema or induration -Neuro: right facial weakness, right ectropion, right hemiparesis ( from old stroke) Time spent more than 35 minutes Plan - Discharge Summary Discharge Rx Participant: No New Discharge Prescriptions: New hydrALAZINE HCL [Apresoline] 50 mg PO BID #60 tab Metoprolol Tartrate [Lopressor] 25 mg PO BID #60 tab Nitroglycerin Sl Tabs [Nitrostat] 0.4 mg SUBLINGUAL Q5M PRN #20 tab PRN Reason: Chest Pain amLODIPine [Norvasc] 10 mg PO DAILY #30 tab Continue Aspirin 81 mg PO DAILY Atorvastatin [Lipitor] 80 mg PO HS Carvedilol [Coreg] 3.125 mg PO BID Clopidogrel [Plavix] 75 mg PO DAILY Famotidine [Pepcid] 20 mg PO DAILY Hydrochlorothiazide [Hydrodiuril] 25 mg PO DAILY Losartan [Cozaar] 50 mg PO DAILY Propylene Glycol [Systane Complete] 1 drop BOTH EYES QID No Action Tamsulosin HCl [Flomax] 0.4 mg PO DAILY Sertraline [Zoloft] 50 mg PO DAILY Discharge Medication List Sertraline [Zoloft] 50 mg PO DAILY 11/22/18 [History] Tamsulosin HCl [Flomax] 0.4 mg PO DAILY 11/22/18 [History] Aspirin 81 mg PO DAILY 09/22/19 [History] Atorvastatin [Lipitor] 80 mg PO HS 09/22/19 [History] Carvedilol [Coreg] 3.125 mg PO BID 09/22/19 [History] Clopidogrel [Plavix] 75 mg PO DAILY 09/22/19 [History] Famotidine [Pepcid] 20 mg PO DAILY 09/22/19 [History] Hydrochlorothiazide [Hydrodiuril] 25 mg PO DAILY 09/22/19 [History] Losartan [Cozaar] 50 mg PO DAILY 09/22/19 [History] Propylene Glycol [Systane Complete] 1 drop BOTH EYES QID 09/22/19 [History] Metoprolol Tartrate [Lopressor] 25 mg PO BID #60 tab 09/25/19 [Rx] Nitroglycerin Sl Tabs [Nitrostat] 0.4 mg SUBLINGUAL Q5M PRN #20 tab 09/25/19 [Rx] amLODIPine [Norvasc] 10 mg PO DAILY #30 tab 09/25/19 [Rx] hydrALAZINE HCL [Apresoline] 50 mg PO BID #60 tab 09/25/19 [Rx] Follow up Appointment(s)/Referral(s): Real Calix MD [Primary Care Provider] - 1-2 days (Office is closed. Please call to schedule appointment) Elidia Mendoza MD [STAFF PHYSICIAN] - 1 Week (Spoke to part time receptionist. Office will call with appointment time )
[2019-09-25 11:27] VITALS: BP 142/75; PULSE 73
--- NOTE | 2019-09-25 13:38 | PN ---
PROGRESS NOTE DATE OF SERVICE: 09/25/2019 REASON FOR FOLLOWUP: Enterococcus urinary tract infection. INTERVAL HISTORY: The patient was seen on rounds this morning. The patient has been afebrile. Patient has been breathing comfortably. The patient denies having any chest pain, shortness of breath or cough. No nausea, vomiting. No abdominal pain. No diarrhea. PHYSICAL EXAMINATION: Blood pressure 142/75 with a pulse of 73 temperature 97.7. He is 95% on room air. General description is an elderly male lying in bed in no distress. RESPIRATORY SYSTEM: Unlabored breathing, clear to auscultation anteriorly. HEART: S1, S2. Regular rate and rhythm. ABDOMEN: Soft, no tenderness. LABS: No new labs have been obtained today. The patient did have a UA obtained yesterday, which was clear. DIAGNOSTIC IMPRESSION AND PLAN: Patient positive culture with Enterococcus faecalis with a question of Hough colonizer, was a mild urinary tract infection adequately treated. Repeat UA has been negative. No need for antibiotic on discharge. Family at bedside. Their questions were answered. MMODL / IJN: [id number] /
== END 2019-09-25 12:20 | disposition home or self-care (01) | DRG 309 ==
LOC: EC 11:35 → 3SCARD 14:24 → UNDODISIN 17:20
PROVIDERS: ADMIT Hospitalist; ATTEND Hospitalist
DX: I47.1 Supraventricular tachycardia (principal); T83.511A Infection and inflammatory reaction due to indwelling urethral catheter, initial encounter; N39.0 Urinary tract infection, site not specified; I69.951 Hemiplegia and hemiparesis following unspecified cerebrovascular disease affecting right dominant side; I71.2 Thoracic aortic aneurysm, without rupture; B95.2 Enterococcus as the cause of diseases classified elsewhere; E78.5 Hyperlipidemia, unspecified; I10 Essential (primary) hypertension; I16.0 Hypertensive urgency; I71.4 Abdominal aortic aneurysm, without rupture; I72.4 Aneurysm of artery of lower extremity; R33.9 Retention of urine, unspecified; I69.922 Dysarthria following unspecified cerebrovascular disease; I69.993 Ataxia following unspecified cerebrovascular disease; I69.992 Facial weakness following unspecified cerebrovascular disease; R79.89 Other specified abnormal findings of blood chemistry; E66.9 Obesity, unspecified; Z68.35 Body mass index [BMI] 35.0-35.9, adult; Z79.02 Long term (current) use of antithrombotics/antiplatelets; Z79.82 Long term (current) use of aspirin; Z79.899 Other long term (current) drug therapy; Z95.828 Presence of other vascular implants and grafts; Z96.659 Presence of unspecified artificial knee joint; Z88.5 Allergy status to narcotic agent; Z88.2 Allergy status to sulfonamides; Z90.49 Acquired absence of other specified parts of digestive tract; Z98.42 Cataract extraction status, left eye; Z98.41 Cataract extraction status, right eye; Z96.1 Presence of intraocular lens
CPT/HCPCS: 36415; 70450; 71046; 80048; 80053; 81001; 83735; 84439; 84443; 84481; 84484; 85025; 85027; 85610; 85730; 87077; 87086; 87186; 93005; 93306; 96374; 99291

== ENCOUNTER → 2020-05-22 | Outpatient (CLI) | payer MEDICARE ==
[2020-05-22 12:41] LABS: Basophils # (A) 0.1 k/uL (0-0.2); Basophils % (A) 1 %; Eosinophils # (A) 0.5 k/uL (0-0.7); Eosinophils % (A) 5 %; HCT 50.7 % (39.0-53.0); HGB 16.4 gm/dL (13.0-17.5); Lymphocytes # (A) 1.9 k/uL (1.0-4.8); Lymphocytes % (A) 19 %; MCH 28.3 pg (25.0-35.0); MCHC 32.2 g/dL (31.0-37.0); MCV 87.6 fL (80.0-100.0); Mean Platelet Volume 8.2; Monocytes # (A) 0.7 k/uL (0-1.0); Monocytes % (A) 7 %; Neutrophils # (A) 6.5 k/uL (1.3-7.7); Neutrophils % (A) 66 %; Platelet Count 275 k/uL (150-450); RBC 5.79 m/uL (4.30-5.90); RDW 14.6 % (11.5-15.5); WBC 9.8 k/uL (3.8-10.6)
[2020-05-22 19:37] LABS: African American GFR (CKD) 69.1 (60.0-200.0); Albumin 4.4 g/dL (3.80-4.90); Albumin/Globulin Ratio 1.69 (1.60-3.17); Anion Gap 11.4 mmol/L (4.00-12.00); BUN/Creat Ratio 15.83 Ratio (12.00-20.00); Calcium 9.6 mg/dL (8.7-10.3); Carbon Dioxide 25.6 mmol/L (21.6-31.8); Chol/HDL Ratio 4.33; Globulin 2.6 g/dL (1.6-3.3); LDL Cholesterol,Calculated 48.8 mg/dL (0.0-131.0); Non-African American GFR(CKD) 59.6 (60.0-200.0); Prostate Specific Antigen 1.7 ng/mL (0.0-6.5); Total Bilirubin 1.4 mg/dL (0.3-1.2); VLDL Calculation 31.2 mg/dL (5.00-40.00)
== END | disposition home or self-care (01) ==
LOC: LABWHC1 10:51
PROVIDERS: ATTEND Internal Medicine
DX: I63.9 Cerebral infarction, unspecified (principal); E78.5 Hyperlipidemia, unspecified; Z12.5 Encounter for screening for malignant neoplasm of prostate; E55.9 Vitamin D deficiency, unspecified
CPT/HCPCS: 36415; 80053; 80061; 82306; 84153; 85025

== ENCOUNTER → 2022-07-01 | Outpatient (CLI) | payer MEDICARE ==
--- NOTE | 2022-07-01 16:28 | US ---
EXAMINATION TYPE: US kidneys/renal and bladder DATE OF EXAM: 07/01/2022 COMPARISON: CT CLINICAL HISTORY: N40.1 BENIGN PROSTATIC HYPERPLASIA. Hx kidney stones. Patient states he has trouble emptying his bladder. BPH and obstruction per order. EXAM MEASUREMENTS: Right Kidney: 12.7 x 7.1 x 5.5 cm Left Kidney: 9.7 x 5.1 x 5.2 cm Post Void Residual Volume: 462.5 mL Right Kidney: Appears slightly enlarged. Appearance of minimal hydronephrosis. Anechoic area seen med ially: 4.7 x 4.5 x 4.4 cm. Anechoic area seen laterally: 4.9 x 4.8 x 4.3 cm. Findings could be rosy tible simple appearing cysts. Left Kidney: Appearance of minimal hydronephrosis. Slightly hypoechoic-possibly anechoic areas seen. Larger area seen upper pole and measures 3.8 x 3.6 x 3.3 cm. Multiple cysts are present. Bladder: Appears anechoic. Bilateral Jets seen: Yes Normal Post Void Residual: No IMPRESSION: 1. Bilateral renal cysts 2. Some minimal bilateral hydronephrosis may be present.
== END | disposition home or self-care (01) ==
LOC: RADUSWWP 14:14
PROVIDERS: ATTEND Urology
DX: N28.1 Cyst of kidney, acquired (principal)
CPT/HCPCS: 76770

== ENCOUNTER → 2023-07-07 | Outpatient (CLI) | payer MEDICARE ==
--- NOTE | 2023-07-07 19:30 | US ---
EXAMINATION TYPE: US kidneys/renal and bladder DATE OF EXAM: 07/07/2023 COMPARISON: NONE CLINICAL INDICATION: Male, 77 years old with history of N18.9 CHR KIDNEY DISEASE; CKD EXAM MEASUREMENTS: Right Kidney: 12.2 x 5.8 x 5.0 cm Left Kidney: 11.7 x 5.5 x 4.3 cm Right Kidney: Couple benign renal cysts, largest measuring 3.3 x 4.2 x 4.2 cm. There is mild to moder ate hydronephrosis. Left Kidney: Multiple cysts, largest upper pole 4.3 x 3.7 x 4.0 cm. Mild to moderate hydronephrosis. Bladder: Anechoic Bilateral Jets seen: No There is a round hypoechoic structure adjacent to the bladder measuring 4.3 cm which the bailiff indicates corresponds to the prostate gland. However, the ultrasound appearance is unusual for the pr ostate gland. Consider further CT evaluation to exclude an adjacent abnormal lymph node or other abno rmality. IMPRESSION: 1. Mild to moderate bilateral hydronephrosis. Appropriate further evaluation recommended vascular cau se. 2. Bilateral renal cortical cysts measuring up to 4.3 cm. 3. A 4.3 cm round hypoechoic structure adjacent to the bladder. Unusual appearance for the prostate g land. The etiology is unclear. Consider further CT evaluation to exclude abnormal adjacent lymphadeno nichole.
== END | disposition home or self-care (01) ==
LOC: RADUSWWP 13:41
PROVIDERS: ATTEND Family Medicine
DX: N13.30 Unspecified hydronephrosis (principal); N18.9 Chronic kidney disease, unspecified; N28.1 Cyst of kidney, acquired; N32.89 Other specified disorders of bladder
CPT/HCPCS: 76770

== ENCOUNTER → 2023-07-20 | Outpatient (CLI) | payer MEDICARE ==
[2023-07-20 12:04] LABS: African American GFR (CKD) 53 (>60 ml/min/1.73 sqM); Blood Urea Nitrogen 31 mg/dL (9-20); Non-African American GFR(CKD) 46 (>60 ml/min/1.73 sqM)
--- NOTE | 2023-07-20 22:05 | CT ---
EXAMINATION TYPE: CT abdomen pelvis w con DATE OF EXAM: 07/20/2023 COMPARISON: 07/14/2019 HISTORY: 77-year-old male N1 3.30, unspecified hydronephrosis TECHNIQUE: Contiguous axial scanning of the abdomen and pelvis following administration of 60 ml Isov ue 300 IV contrast. Delayed images through the kidneys and coronal/sagittal reconstructions performe d. CT DLP: 2054.30 mGycm Automated exposure control for dose reduction was used. FINDINGS: Heart mildly enlarged without pericardial effusion. Moderate aortic valvular calcifications . Three-vessel coronary artery calcifications. Large caliber to the main right and left pulmonary art eries measuring up to 3.2 cm suggest underlying pulmonary hypertension. Partially visualized aneurysm ascending aorta 4.5 cm, unchanged. There is a right pericardiac nodule which is new or larger measuring 1.7 x 0.8 cm. A small pericardia c cysts or lymph node are possibilities. Progressive groundglass and reticular changes in the lower lungs with associated bibasilar bronchiect asis. No pleural effusion. Tiny hiatal hernia. 1.8 cm cyst left liver lobe. Portal venous system is patent. No biliary ductal dilatation. There is a 3.3 cm diverticulum of the second portion of the duodenum projecting into the pancreatic head region . Cholecystectomy clips. Unchanged slight 1.3 cm nodularity right adrenal gland. Left adrenal gland, spleen, and pancreas with in normal limits. There are bilateral renal cortical cysts measuring up to 4.5 cm on the right and 4.3 cm on the left. These appear to have slightly increased in size from 2019. There is moderate to severe left and moderate right hydronephrosis and corresponding hydroureter whic h is new. No nephrolithiasis is identified. No dilated small bowel, free fluid, or free air. No mesenteric or retroperitoneal lymphadenopathy. Oral contrast progressed to the cecum. There is mild overall stool burden. Sigmoid diverticulosis. Re dundant sigmoid colon. No pericolonic inflammatory change.r prominent stool distending the rectum up to 7.0 cm wide. Prominent distention of the urinary bladder up to 15.5 cm with some bladder wall trabeculations. Pros julien gland measures 5.0 cm wide but with bladder lumen funneling into the superior aspect of the pros julien gland suggesting prior TURP. A couple left-sided pelvic phleboliths. Note moderate atherosclerotic calcifications abdominal aorta and iliac arteries with a 5.3 cm fusifor m aneurysm infrarenal abdominal aorta increased from 4.6 cm in 2019. In addition, a left internal iliac artery aneurysm has increased tor 4.2 cm versus 3.3 cm in 2019. Re commend vascular surgery evaluation. No abnormal fluid collection in the pelvis or pelvic lymphadenop athy. Bones: DISH within the visualized mid to lower thoracic spine. Advanced facet arthropathy and advance d degenerative disc disease mid to lower lumbar spine. Degenerative grade 1 anterolisthesis L4-L5. Mo derate degenerative change of the bilateral hips. Redemonstration of a 2.5 cm focus of AVN weightbear ing aspect of the left femoral head. Smaller 1.3 cm focus anterior weightbearing aspect right femoral head. IMPRESSION: 1. MODERATE TO SEVERE LEFT AND MODERATE RIGHT HYDRONEPHROSIS, NEW FROM 2019. THERE IS CORRESPONDING H YDROURETER AND PROMINENT DISTENTION OF THE SLIGHTLY TRABECULATED BLADDER SUGGESTING CHRONIC BLADDER O UTLET OBSTRUCTION. THERE MAY HAVE BEEN PRIOR TURP. CLINICALLY CORRELATE. 2. ENLARGING INFRARENAL AAA IS 5.3 CM NOW VERSUS 4.6 CM IN 2019. ALSO, ENLARGING LEFT INTERNAL ILIAC ARTERY ANEURYSM NOW AT 4.2 CM VERSUS 3.3 CM IN 2019. RECOMMEND VASCULAR SURGERY EVALUATION. 3. PROGRESSIVE GROUNDGLASS AND RETICULAR CHANGES WITH ASSOCIATED BRONCHIECTASIS IN THE LOWER LUNGS. C ORRELATE FOR PROGRESSIVE FIBROSIS, CHRONIC ASPIRATION, OR INTERSTITIAL PNEUMONITIS SUCH FIBROTIC N SIP. ASSOCIATED PULMONARY ARTERIAL HYPERTENSION. 4. A RIGHT PERICARDIAC NODULE MEASURES 1.7 CM, NEW FROM PRIOR. A SMALL PERICARDIAC CYST OR REACTIVE L YMPH NODE ARE POSSIBILITIES. 3-[address] MON[address] FOLLOW-UP CT TO ENSURE STABILITY.
== END | disposition home or self-care (01) ==
LOC: RADCTMAIN 11:14
PROVIDERS: ATTEND Family Medicine
DX: N13.30 Unspecified hydronephrosis (principal); N32.89 Other specified disorders of bladder; I71.43 Infrarenal abdominal aortic aneurysm, without rupture; J47.9 Bronchiectasis, uncomplicated; J84.114 Acute interstitial pneumonitis; N13.4 Hydroureter; I27.21 Secondary pulmonary arterial hypertension; R91.1 Solitary pulmonary nodule
CPT/HCPCS: 82565; 84520; 74177; 36415; Q9967

== ENCOUNTER → 2023-10-24 | Outpatient (CLI) | payer MEDICARE ==
[2023-10-24 15:14] LABS: Basophils # (A) 0.07 X 10*3/uL (0.00-0.10); Basophils % (A) 0.7 %; Eosinophils # (A) 0.42 X 10*3/uL (0.04-0.35); Eosinophils % (A) 4.3 %; HCT 44.9 % (39.6-50.0); HGB 14.5 g/dL (13.0-17.0); Lymphocytes % (A) 16.4 %; MCH 28.4 pg (27.0-32.0); MCHC 32.3 g/dL (32.0-37.0); Mean Platelet Volume 11.3 FL (9.5-12.2); Monocytes # (A) 0.85 X 10*3/uL (0.20-1.00); Monocytes % (A) 8.7 %; NRBC Per 100 WBC 0 X 10*3/uL (0.00-0.01); Neutrophils # (A) 6.78 X 10*3/uL (1.80-7.70); Neutrophils % (A) 69.5 %; Platelet Count 259 X 10*3/uL (140-440); RDW 14.5 % (11.5-14.5); WBC 9.76 X 10*3/uL (4.50-10.00)
[2023-10-24 15:15] LABS: BUN/Creat Ratio 16.62 Ratio (12.00-20.00); Blood Urea Nitrogen 26.6 mg/dL (9.0-27.0); Calcium 9.1 mg/dL (8.7-10.3); Carbon Dioxide 23.3 mmol/L (21.6-31.8); Chloride 104 mmol/L (96-109); Glucose 92 mg/dL (70-110); Potassium 4.4 mmol/L (3.5-5.5); Sodium 141 mmol/L (135-145)
== END | disposition home or self-care (01) ==
LOC: LABWHC1 10:24
PROVIDERS: ATTEND Surgery Vascular Surgery
DX: Z01.812 Encounter for preprocedural laboratory examination (principal)
CPT/HCPCS: 36415; 80048; 85025

== ENCOUNTER → 2023-11-05 | Outpatient (CLI) | payer MEDICARE ==
[2023-11-06 06:35] LABS: Albumin 3.7 g/dL (3.8-4.9); Blood Urea Nitrogen 27.9 mg/dL (9.0-27.0); Calcium 9.2 mg/dL (8.7-10.3); Carbon Dioxide 20.9 mmol/L (21.6-31.8); Chloride 104 mmol/L (96-109); Glucose 90 mg/dL (70-110); Potassium 4.7 mmol/L (3.5-5.5); Sodium 138 mmol/L (135-145)
== END | disposition home or self-care (01) ==
LOC: LABWHC1 09:40
PROVIDERS: ATTEND Family Medicine
DX: I72.3 Aneurysm of iliac artery (principal)
CPT/HCPCS: 36415; 80069

== ENCOUNTER → 2023-11-24 | Outpatient (CLI) | payer MEDICARE ==
--- NOTE | 2023-11-24 12:41 | CT ---
Exam: CT Chest without contrast. Date: 11/24/2023. Comparison: CT abdomen 07/14/2019. History: Aneurysm. Technique: CT examination of the chest was performed without contrast. Coronal and sagittal reformats were performed. CT dose lowering techniques were used, to include: automated exposure control, adjus tment for patient size, and/or use of iterative reconstruction. FINDINGS: Mediastinum and Maria T: There is no axillary, mediastinal or hilar lymphadenopathy. Pleural and Pericardial spaces: There are no pleural or pericardial effusions. Upper Abdomen: There are scattered simple cysts seen throughout the partially visualized kidneys. Par tially visualized IVC filter is present. The gallbladder surgically absent. There is a small sliding hiatal hernia. There is a simple cyst within the left lobe of the liver. These findings all appear si milar to the previous examination. Cardiovascular: There is moderate vascular calcification throughout the thoracic aorta. Aneurysmal di lation of the ascending thoracic aorta up to 4.9 cm is unchanged. There are severe diffuse coronary a rtery calcifications. Mild to moderate global cardiomegaly. Lung Parenchyma and Airways: There is some scattered subpleural areas of reticulation within the mid to lower lungs bilaterally more prominent lung bases. Minimal bronchiectasis is seen as this is likel y related to chronic changes. The lungs otherwise appear clear. Bones: No fracture or aggressive osseous lesion. IMPRESSION: 1. No significant change in the ascending thoracic aortic aneurysm. 2. Chronic lung changes as above with no acute airspace process. 3. Cardiomegaly with severe coronary artery calcifications.
== END | disposition home or self-care (01) ==
LOC: RADCTMAIN 12:02
PROVIDERS: ATTEND Surgery Vascular Surgery
DX: I71.21 Aneurysm of the ascending aorta, without rupture (principal); I25.10 Atherosclerotic heart disease of native coronary artery without angina pectoris; I51.7 Cardiomegaly; I72.3 Aneurysm of iliac artery; I71.43 Infrarenal abdominal aortic aneurysm, without rupture; J98.4 Other disorders of lung
CPT/HCPCS: 71250

== ENCOUNTER → 2024-01-12 | Outpatient (CLI) | payer MEDICARE ==
--- NOTE | 2024-01-13 09:31 | CA ---
Transthoracic Echo Report Name: Van Suárez Age: 78 Gender: M : 1945 Exam Date: 01/12/2024 11:38 Exam Location: [place] [facility] Ht (in): 72 Wt (lb): 262 Ordering Physician: Josué Tolbert MD Attending/Referring Phys: Josué Tolbert MD [employer] Jigna Munoz, [facility] Procedure CPT: Indications: Z86.79 PERSONAL HISTORY OF OTHER DISEASES OF THE C Cardiac Hx: Technical Quality: Fair Contrast 1: Definity Total Dose (mL): 2 Contrast 2: Total Dose (mL): MEASUREMENTS (Male / Female) Normal Values 2D ECHO LV Diastolic Diameter PLAX 4.9 cm 4.2 - 5.9 / 3.9 - 5.3 cm LV Systolic Diameter PLAX 3.9 cm IVS Diastolic Thickness 1.3 cm 0.6 - 1.0 / 0.6 - 0.9 cm LVPW Diastolic Thickness 1.2 cm 0.6 - 1.0 / 0.6 - 0.9 cm LV Relative Wall Thickness 0.5 RV Internal Dim ED PLAX 3.6 cm LVOT Diameter 2.5 cm LA Systolic Diameter LX 4.0 cm 3.0 - 4.0 / 2.7 - 3.8 cm LV Diastolic Volume MOD 4C 104.1 cm??? LV Systolic Volume MOD 4C 42.6 cm??? LV Ejection Fraction MOD 4C 59.1 % LV Cardiac Index MOD 4C 1429.2 cm???/min???m??? LV Diastolic Length 4C 9.6 cm LV Systolic Length 4C 8.2 cm LV Diastolic Volume MOD 2C 91.8 cm??? LV Systolic Volume MOD 2C 37.3 cm??? LV Ejection Fraction MOD 2C 59.4 % LV Cardiac Index MOD 2C 1267.3 cm???/min???m??? LV Diastolic Length 2C 10.2 cm LV Systolic Length 2C 7.9 cm LA Volume 77.8 cm??? 18 - 58 / 22 - 52 cm??? LA Volume Index 31.2 cm???/m??? 16 - 28 cm???/m??? M-MODE LV Diastolic Diameter MM 5.5 cm 4.2 - 5.9 / 3.9 - 5.3 cm LV Systolic Diameter MM 3.8 cm LV Cardiac Index MM Teich 1997.7 cm???/min???m??? IVS Diastolic Thickness MM 1.2 cm 0.6 - 1.0 / 0.6 - 0.9 cm LVPW Diastolic Thickness MM 1.1 cm 0.6 - 1.0 / 0.6 - 0.9 cm LV Relative Wall Thickness MM 0.4 0.24 - 0.42 / 0.22 - 0.42 LV Mass Index MM 107.0 g/m??? 49 - 115 / 43 - 95 g/m??? Aortic Root Diameter MM 4.5 cm MV E Point Septal Separation 1.4 cm AV Cusp Separation MM 1.8 cm DOPPLER AV Peak Velocity 241.5 cm/s AV Peak Gradient 23.3 mmHg AV Mean Velocity 169.6 cm/s AV Mean Gradient 12.5 mmHg AV Velocity Time Integral 54.8 cm AI Peak Velocity 451.2 cm/s AI Peak Gradient 81.4 mmHg AI Pressure Half Time 772.7 ms LVOT Peak Velocity 137.8 cm/s LVOT Peak Gradient 7.6 mmHg AV Area Cont Eq pk 2.9 cm??? MV Area PHT 1.4 cm??? Mitral E Point Velocity 64.1 cm/s Mitral A Point Velocity 110.0 cm/s Mitral E to A Ratio 0.6 MV Deceleration Time 528.7 ms TR Peak Velocity 224.2 cm/s TR Peak Gradient 20.1 mmHg Right Ventricular Systolic Press 25.1 mmHg FINDINGS Left Ventricle Left ventricular ejection fraction is estimated at 55-60 %. Left ventricular cavity size normal. Mild concentric left ventricular hypertrophy. No obvious regional wall motion abnormalities. Moderately increased left ventricular mass. Right Ventricle Mild right ventricular dilatation. Right ventricular systolic pressure within normal limits. Right Atrium Right atrium not well visualized. Left Atrium Mildly increased left atrial volume. Mildly increased left atrial area. Mitral Valve Structurally normal mitral valve. No mitral stenosis, regurgitation or prolapse. Aortic Valve Trileaflet aortic valve. Aortic valve sclerosis. Mild aortic stenosis with a peak gradient of 23 mmHg and a mean gradient of 13 mmHg. Mild aortic regurgitation. Tricuspid Valve Structurally normal tricuspid valve. Mild tricuspid regurgitation. Pulmonic Valve Pulmonic valve not well visualized. Mild pulmonic regurgitation. Pericardium No pericardial effusion. Aorta Moderate aortic dilatation at the level of the sinuses of valsalva 45 mm CONCLUSIONS Normal LV size and systolic function. Mild left atrial enlargement and right ventricular enlargement. Calcified aortic valve with mild stenosis peak gradient 23 mmHg. No significant pulmonary hypertension. No pericardial effusion Previewed by: Dr. Citlali Mosley MD (Electronically Signed) Final Date: 13 January 2024 09:31
== END | disposition home or self-care (01) ==
LOC: RADECHMAIN 11:21
PROVIDERS: ATTEND Surgery Vascular Surgery
DX: Z86.79 Personal history of other diseases of the circulatory system (principal)
CPT/HCPCS: C8929; Q9957; 93306

== ENCOUNTER → 2024-02-06 | Outpatient (CLI) | payer MEDICARE ==
--- NOTE | 2024-02-06 11:19 | US ---
EXAMINATION TYPE: US kidneys/renal and bladder DATE OF EXAM: 02/06/2024 COMPARISON: 07/07/2023. CLINICAL INDICATION: Male, 78 years old with history of N13.30 UNSPECIFIED HYDRONEPHROSIS; history of hydronephrosis EXAM MEASUREMENTS: Right Kidney: 10.4 x 5.3 x 5.4 cm Left Kidney: 11.2 x 5.1 x 4.1 cm Right Kidney: mild hydronephrosis. multiple cystic lesions, largest = 4.5 x 3.5 x 3.3cm Left Kidney: mild hydronephrosis. multiple cystic lesions, largest upper pole = 4.7 x 4.2 x 5.1cm Bladder: appears wnl Bilateral Jets seen: no IMPRESSION: Mild bilateral hydronephrosis. Correlate for bladder outlet obstruction. Simple appearing bilateral renal cysts.
== END | disposition home or self-care (01) ==
LOC: RADUSWWP 10:26
PROVIDERS: ATTEND Urology
DX: N28.1 Cyst of kidney, acquired (principal); N13.30 Unspecified hydronephrosis
CPT/HCPCS: 76770